=== PATIENT | female | born 1955 | race Caucasian/White ===

== ENCOUNTER 2024-09-09 23:13 | Inpatient (IN) ==
[2024-09-09 23:50] LABS: Appearance Urine Clear (Clear); Bilirubin Urine Negative (Negative); Blood Urine Negative (Negative); Color Urine Yellow; Glucose Urine UA Negative (Negative); Ketones Urine Trace (Negative); Leukocyte Esterase Urine Negative (Negative); Nitrite Urine Negative (Negative); Protein Urine Negative (Negative); Urobilinogen Urine Negative (Negative); pH Urine 5.5 (4.5-7.5)
[2024-09-09 23:52] LABS: Basophils # (auto) 0.06 K/uL (0.00-0.20); Basophils % (auto) 0.7 %; Eosinophils # (auto) 0.01 K/uL (0.00-0.50); Eosinophils % (auto) 0.1 %; Hematocrit (blood only) 40.4 % (37.0-47.0); Hemoglobin 12.9 g/dl (12.0-16.0); Immature Granulocytes # (auto) 0.02 K/uL (0.01-0.20); Immature Granulocytes % (auto) 0.2 %; Lymphocytes # (auto) 2.07 K/uL (1.20-3.40); Lymphocytes % (auto) 25.2 %; Mean Corpuscular Hemoglobin 27.4 pg (25.0-34.0); Mean Corpuscular Hgb Conc 31.9 g/dL (32.0-36.0); Mean Corpuscular Volume 85.8 fL (80.0-100.0); Monocytes # (auto) 0.52 K/uL (0.11-0.59); Monocytes % (auto) 6.3 %; Neutrophils # (auto) 5.53 K/uL (1.40-6.50); Neutrophils % (auto) 67.5 %; Platelet Count 281 K/uL (130-400); RDW Coefficient of Variation 14.5 % (11.5-14.5); RDW Standard Deviation 45.4 fL (36.4-46.3); Red Blood Count 4.71 M/uL (4.20-5.40); White Blood Count 8.21 K/ul (4.8-10.8)
[2024-09-09] MEDS: OPTIRAY 320 100ml IV ONE (23:57)
[2024-09-10 00:10] LABS: Alanine Aminotransferase 22 U/L (7-52); Albumin Level 4.3 gm/dl (3.4-5.0); Alkaline Phosphatase 97 U/L (34-104); Anion Gap 8 (3-11); Aspartate Aminotransferase 22 U/L (13-39); BUN Creatinine Ratio 18.2 (10-20); Bilirubin,Total 0.5 mg/dl (0.2-1.0); Blood Urea Nitrogen 28 mg/dl (6-23); Calcium 10.6 mg/dl (8.6-10.3); Carbon Dioxide 25 mmol/L (21-32); Chloride 105 mmol/L (98-107); Creatine Kinase 226 U/L (26-192); Globulin 4.1 gm/dl (2.5-4.0); Glucose 178 mg/dl (70-99(Fasting)); Magnesium 2.3 mg/dl (1.7-2.4); Potassium 4.3 mmol/L (3.5-5.1); Sodium 138 mmol/L (136-145); Total Protein 8.4 gm/dl (6.0-8.3)
--- NOTE | 2024-09-10 00:13 | Emergency Department Note ---
History of Present Illness General Chief complaint: Altered Mental Status Stated complaint: AMS Time Seen by Provider: 09/09/24 23:24 History of Present Illness This 69-year-old female from the [facility] presents the ER for frequent falls and increased confusion per EMS. Per review of the notes from the [facility] the patient has been there for 1 week from [place]. Patient is currently there for catatonia, anxiety and depression. Patient is moving all extremities. She is able to answer her name but does not answer any other questions for me. History is obtained from EMS and nursing. Home Medications Medication Instructions Recorded Confirmed Type amantadine HCl 100 mg capsule 100 mg PO HS 09/10/24 09/10/24 History amantadine HCl 100 mg capsule 200 mg PO QAM 09/10/24 09/10/24 History aspirin 81 mg chewable tablet 81 mg PO DAILY 09/10/24 09/10/24 History bupropion HCl 100 mg tablet,12 hr 100 mg PO DAILY 09/10/24 09/10/24 History sustained-release dorzolamide 22.3 mg-timolol 6.8 1 drp ophthalmic (eye) BID 09/10/24 09/10/24 History mg/mL eye drops ezetimibe 10 mg tablet 10 mg PO DAILY 09/10/24 09/10/24 History latanoprost 0.005 % eye drops 1 drp ophthalmic (eye) HS 09/10/24 09/10/24 History losartan 25 mg tablet 50 mg PO DAILY 09/10/24 09/10/24 History neomycin-bacitracn Zn-polymyx 3.5 1 applic topical BID 09/10/24 09/10/24 History mg-400 unit-5,000 unit/gram top oint (Triple Antibiotic) semaglutide 1 mg/dose (4 mg/3 mL) 1 mg subcut WK 09/10/24 09/10/24 History subcutaneous pen injector (Ozempic) ziprasidone HCl 60 mg capsule 60 mg PO AMPM 09/10/24 09/10/24 History Allergies Allergy/AdvReac Type Severity Reaction Status Date / Time Penicillins Allergy Unknown Verified 09/10/24 02:04 Past Med/Surg History Problem List (Updated 09/10/24 @ 03:20 by Emily Bean PA-C) Fall (Acute) Altered mental status (Acute) Social History Smoking Status: Former smoker Feels Safe at Home: Yes Physical Exam Vital Signs Vital Signs - 24 hr 09/09/24 23:08 09/09/24 23:08 09/09/24 23:24 Temperature 36.9 C Temperature Source Oral Pulse Rate 82 Pulse Rate from SpO2 Sensor Respiratory Rate 18 Respiratory Effort / Characteristics Non-Labored Non-Labored Respiratory Depth Normal Normal Blood Pressure 139/78 Blood Pressure Mean 98 Pulse Oximetry 80 L 97 Oxygen Delivery Method Room Air Nasal Cannula Oxygen Flow Rate 6 Sepsis Recent Fever Within 48 Hours No Sepsis New/Unexplained Change in Mental Status No Sepsis Action Taken by Nursing No Action Required 09/09/24 23:30 09/09/24 23:39 09/09/24 23:40 Temperature Temperature Source Pulse Rate 81 80 Pulse Rate from SpO2 Sensor 79 Respiratory Rate 26 H 23 Respiratory Effort / Characteristics Respiratory Depth Blood Pressure 154/82 H Blood Pressure Mean 96 Pulse Oximetry 80 L Oxygen Delivery Method Room Air Oxygen Flow Rate Sepsis Recent Fever Within 48 Hours Sepsis New/Unexplained Change in Mental Status Sepsis Action Taken by Nursing 09/09/24 23:40 09/09/24 23:41 09/10/24 00:24 Temperature Temperature Source Pulse Rate 83 83 Pulse Rate from SpO2 Sensor Respiratory Rate 27 H Respiratory Effort / Characteristics Respiratory Depth Blood Pressure 154/82 H Blood Pressure Mean 96 Pulse Oximetry 95 Oxygen Delivery Method Nasal Cannula Oxygen Flow Rate 6 Sepsis Recent Fever Within 48 Hours Sepsis New/Unexplained Change in Mental Status Sepsis Action Taken by Nursing 09/10/24 00:25 09/10/24 00:25 09/10/24 00:30 Temperature Temperature Source Pulse Rate 78 Pulse Rate from SpO2 Sensor 78 Respiratory Rate 22 Respiratory Effort / Characteristics Respiratory Depth Blood Pressure 142/72 H 142/72 H Blood Pressure Mean 98 98 Pulse Oximetry 100 Oxygen Delivery Method Free Flow/Blow- by Oxygen Flow Rate 8 Sepsis Recent Fever Within 48 Hours Sepsis New/Unexplained Change in Mental Status Sepsis Action Taken by Nursing 09/10/24 00:31 09/10/24 00:31 09/10/24 00:31 Temperature Temperature Source Pulse Rate Pulse Rate from SpO2 Sensor Respiratory Rate Respiratory Effort / Characteristics Respiratory Depth Blood Pressure 111/89 111/89 111/89 Blood Pressure Mean 96 96 96 Pulse Oximetry Oxygen Delivery Method Oxygen Flow Rate Sepsis Recent Fever Within 48 Hours Sepsis New/Unexplained Change in Mental Status Sepsis Action Taken by Nursing 09/10/24 00:31 09/10/24 00:41 09/10/24 00:45 Temperature Temperature Source Pulse Rate 82 Pulse Rate from SpO2 Sensor 82 Respiratory Rate 21 Respiratory Effort / Characteristics Respiratory Depth Blood Pressure 111/89 Blood Pressure Mean 96 Pulse Oximetry 98 98 Oxygen Delivery Method Free Flow/Blow- by Oxygen Flow Rate 8 Sepsis Recent Fever Within 48 Hours Sepsis New/Unexplained Change in Mental Status Sepsis Action Taken by Nursing 09/10/24 00:54 09/10/24 00:55 09/10/24 01:08 Temperature Temperature Source Pulse Rate 76 Pulse Rate from SpO2 Sensor 78 Respiratory Rate 16 Respiratory Effort / Characteristics Non-Labored Respiratory Depth Normal Blood Pressure Blood Pressure Mean Pulse Oximetry 99 98 Oxygen Delivery Method Room Air Room Air Oxygen Flow Rate Sepsis Recent Fever Within 48 Hours Sepsis New/Unexplained Change in Mental Status Sepsis Action Taken by Nursing VITALS: Vitals are noted on the nurse's note and reviewed by myself. Vital signs stable. GENERAL: White female moving all extremities not answering questions, in no acute distress, nondiaphoretic, well-developed well-nourished. SKIN: Old bruising to the anterior chest wall, the rest of the skin was without rashes, erythema, edema, or bruising. There is no tenting of the skin. Capillary reflex less than 2 seconds. HEAD: Normocephalic atraumatic. EARS: External auditory canals clear EYES: Pupils equal round and reactive to light and accommodation. Conjunctivae without injection, sclerae without icterus. Extraocular movements intact. NOSE: Patent, no discharge. MOUTH: Mucous membranes moist. Pharynx without erythema or exudate. Uvula midline. Airway patent. Tongue does not deviate. NECK: Supple without nuchal rigidity. No lymphadenopathy. No thyromegaly. Cervical spine is nontender. No JVD. HEART: Regular rate and rhythm LUNGS: Clear to auscultation bilaterally without wheezes, rales or rhonchi. No retractions or accessory muscle use. ABDOMEN: Positive bowel sounds x 4. Normal tympanic percussion. Soft, diffusely tender to palpation, without masses or organomegaly. Abbott sign negative. No guarding or rebound tenderness. No CVA tenderness MUSCULOSKELETAL: No muscle atrophy, erythema, or edema noted. No thoracic tenderness, lumbar tenderness. No bruising. No step-offs. 5-5 strength throughout. NEURO: Patient was alert and oriented to person but not place and time. Normal sensation to light and sharp touch. No focal neurological deficits. Course Administered Medications Discontinued Medications Sodium Chloride (Nss) 500 mls @ 999 mls/hr IV .Q31M ONE Stop: 09/10/24 00:02 Last Infusion: 09/10/24 01:00 Dose: Infused Documented By: Admin: 09/10/24 00:21 Dose: 999 mls/hr Documented By: MADDISON Ioversol (Optiray 320 100ml) 93 ml IV ONCE ONE Stop: 09/09/24 23:58 Last Admin: 09/09/24 23:57 Dose: 93 ml Documented By: MARLINE Lorazepam (Lorazepam 2 Mg/1 Ml Vial) 1 mg IV NOW STA Stop: 09/10/24 00:10 Last Admin: 09/10/24 00:19 Dose: 1 mg Documented By: MADDISON Medical Decision Making Medical Records Attestation: I reviewed the patient's medical records. Home Medications Current Medication List: was personally reviewed by me Laboratory Data Attestation: I reviewed the patient's lab results. 09/09/24 23:24 09/09/24 23:24 Lab Results 09/09/24 Range/Units 23:24 WBC 8.21 (4.8-10.8) K/ul RBC 4.71 (4.20-5.40) M/uL Hgb 12.9 (12.0-16.0) g/dl Hct 40.4 (37.0-47.0) % MCV 85.8 (80.0-100.0) fL MCH 27.4 (25.0-34.0) pg MCHC 31.9 L (32.0-36.0) g/dL RDW Std Deviation 45.4 (36.4-46.3) fL RDW Coeff of [place] 14.5 (11.5-14.5) % Plt Count 281 (130-400) K/uL MPV 10.0 (9.4-12.4) fL Immature Gran % (Auto) 0.2 % Neut % (Auto) 67.5 % Lymph % (Auto) 25.2 % [place] % (Auto) 6.3 % Eos % (Auto) 0.1 % Baso % (Auto) 0.7 % Neut # (Auto) 5.53 (1.40-6.50) K/uL Lymph # (Auto) 2.07 (1.20-3.40) K/uL [place] # (Auto) 0.52 (0.11-0.59) K/uL Eos # (Auto) 0.01 (0.00-0.50) K/uL Baso # (Auto) 0.06 (0.00-0.20) K/uL Immature Gran # (Auto) 0.02 (0.01-0.20) K/uL Sodium 138 (136-145) mmol/L Potassium 4.3 (3.5-5.1) mmol/L Chloride 105 (98-107) mmol/L Carbon Dioxide 25 (21-32) mmol/L Anion Gap 8 (3-11) BUN 28 H (6-23) mg/dl Creatinine 1.54 H (0.6-1.2) mg/dl Est Cr Clr Drug Dosing Not Reportable eGFR 36.55 BUN/Creatinine Ratio 18.2 (10-20) Glucose 178 H (70-99(Fasting)) mg/dl Calcium 10.6 H (8.6-10.3) mg/dl Magnesium 2.3 (1.7-2.4) mg/dl Total Bilirubin 0.5 (0.2-1.0) mg/dl AST 22 (13-39) U/L ALT 22 (7-52) U/L Alkaline Phosphatase 97 (34-104) U/L Total Creatine Kinase 226 H (26-192) U/L Troponin I High Sens 7.5 (0-14) pg/ml Total Protein 8.4 H (6.0-8.3) gm/dl Albumin 4.3 (3.4-5.0) gm/dl Globulin 4.1 H (2.5-4.0) gm/dl Albumin/Globulin Ratio 1.0 (0.9-2) TSH 1.208 (0.300-4.500) uIu/ml Urine Color Yellow Urine Appearance Clear (Clear) Urine pH 5.5 (4.5-7.5) Ur Specific [place] 1.020 (1.000-1.030) Urine Protein Negative (Negative) Urine Glucose (UA) Negative (Negative) Urine Ketones Trace H (Negative) Urine Blood Negative (Negative) Urine Nitrite Negative (Negative) Urine Bilirubin Negative (Negative) Urine Urobilinogen Negative (Negative) Ur Leukocyte Esterase Negative (Negative) Imaging Data Attestation: I personally reviewed and interpreted this imaging study as follows: Radiologist's Impression: Head CT 09/09/24 23:24 EXAM: CT head/brain wo con CLINICAL HISTORY: AMS TECHNIQUE: Multiple axial images are obtained from the skull base to the vertex without contrast. CT scan was performed according to ALARA (as low as reasonable achievable). COMPARISON: None. FINDINGS: There is cerebral atrophy. Osteosclerosis involving skull bones No evidence of space occupying lesion, hemorrhage, edema, mass effect, midline shift, extra axial collection, or hydrocephalus is noted. Basal cisterns are symmetric and normal in size and configuration. There are scattered periventricular hypodensities as can be seen with chronic microvascular ischemic changes. The proctor-white matter differentiation is preserved. Visualized paranasal sinuses and mastoid air cells are well aerated. Orbital contents are within normal limits. Bony structures are intact. IMPRESSION: 1. No evidence of acute intracranial abnormality is demonstrated. 2. Chronic microvascular ischemic changes. 3. Cerebral atrophy. 4. Osteosclerosis involving skull bones: advise metabolic workup Electronically signed by Austin Higuera 09-10-2024 01:48 AM Abdomen/Pelvis CT 09/09/24 23:32 EXAM: CT abd pelvis IV con only CLINICAL HISTORY: fall, pain TECHNIQUE: Multiple contiguous axial images were obtained from the level of diaphragm to the pubis symphysis. This study was acquired after the IV administration of iodinated contrast material, given the patient's indications for the examination. If IV contrast material had not been administered, the likelihood of detecting abnormalities relevant to the patient's condition would have been substantially decreased. Coronal and sagittal reformatted images were generated and reviewed to improve anatomic localization and optimize lesion detection. CT scan was performed according to ALARA (as low as reasonably achievable). COMPARISON: None. FINDINGS: The visualized lung bases are clear. ABDOMEN/PELVIS: The liver is normal in size and attenuation. No focal liver lesions are seen. There is no intra or extrahepatic biliary ductal dilatation. Hepatic vasculature is patent. Gallbladder is not visualized, cholecystectomy status. Mild bilateral perinephric fat stranding is noted, likely age related. The spleen is unremarkable. The pancreas is unremarkable. Both adrenal glands are unremarkable. The kidneys are normal in size and attenuation. There is no hydronephrosis. No renal calculi or renal masses are identified. The ureters are normal in caliber and no ureteral calculi are seen. The bladder is normal in contour. No evidence of focal or diffuse bowel wall thickening or evidence of bowel obstruction is seen. The appendix appears normal. No adenopathy or fluid collections are seen. The aorta is normal in caliber. No aggressive appearing osseous lesions are identified. Collection is noted within the endometrial cavity with suspicious enhancing soft tissue. IMPRESSION: 1. No obvious post-traumatic solid organ injury detected. 2. No free fluid is noted in the abdominopelvic cavity. 3. Hypodense collection is noted within the endometrial cavity with suspicious enhancing soft tissue. Clinical correlation/ultrasound pelvis is suggested for better evaluation. 4. Mild bilateral perinephric fat stranding, likely age related. Electronically signed by Austin Higuera 09-10-2024 02:[address] 09/09/24 23:32 EXAM: CT cervical spine wo con CLINICAL HISTORY: fall, AMS TECHNIQUE: Computed tomography of the cervical spine performed without intravenous contrast. Contiguous axial images were obtained from the skull base to T2, with sagittal and coronal reformatted images reconstructed from the axial data. CT scan was performed according to ALARA (as low as reasonably achievable). COMPARISON: None. FINDINGS: Straightening of the cervical spine is noted. Alignment of spine is maintained. Vertebral bodies are normal in height. No evidence of fracture. Lateral masses of C1 are symmetrical, and the dens is intact. Prevertebral soft tissues are not widened. The remaining suprahyoid and infrahyoid soft tissues in the neck are unremarkable. C2-C3: No disc bulge, mass effect on the cord or neuroforaminal narrowing. C3-C4: No disc bulge, mass effect on the cord or neuroforaminal narrowing. C4-C5: No disc bulge, mass effect on the cord or neuroforaminal narrowing. C5-C6: No disc bulge, mass effect on the cord or neuroforaminal narrowing. C6-C7: No disc bulge, mass effect on the cord or neuroforaminal narrowing. C7-T1: No disc bulge, mass effect on the cord or neuroforaminal narrowing. Thyroid gland appears unremarkable. IMPRESSION: 1. No acute fracture or subluxation in the cervical spine. Electronically signed by Austin Higuera 09-10-2024 01:[address] 09/09/24 23:32 EXAM: CT chest diagnostic w con CLINICAL HISTORY: fall, ams TECHNIQUE: Contiguous axial images were obtained from the neck base through the upper abdomen following intravenous administration of contrast material. If IV contrast material had not been administered, the likelihood of detecting abnormalities relevant to the patient's condition would have been substantially decreased. In addition, sagittal and coronal reconstructions were performed. CT scan was performed according to ALARA (as low as reasonably achievable). COMPARISON: none FINDINGS: The lungs are clear, with no focal areas of consolidation. No pulmonary nodules are seen. The central airways are patent. There are no pleural effusions. No pneumothorax is seen. No axillary, hilar, or mediastinal adenopathy is identified. The visualized thyroid is unremarkable. The heart, aorta, and pulmonary arteries are of normal size and configuration. No pericardial effusion is identified. Imaged portions of the upper abdomen are unremarkable. No aggressive appearing osseous lesions are identified. IMPRESSION: 1. No acute trauma related injury detected. Electronically signed by Austin Higuera 09-10-2024 02:[address] 09/09/24 23:32 EXAM: CT lumbar spine w con CLINICAL HISTORY: fall, pain TECHNIQUE: Multiple contiguous axial images were obtained through the lumbar spine without IV contrast. Sagittal and coronal reformatted images were obtained from the axial data. CT scan was performed according to ALARA (as low as reasonable achievable). COMPARISON: None. FINDINGS: The normal lordotic curvature of the lumbar spine is maintained. Lumbar vertebral bodies are maintained in height and alignment. No vertebral estructive changes are seen. T11-T12: Evaluated on sagittal images only. No disc bulge, canal stenosis or neuroforaminal narrowing. Subarticular recesses are patent. T12-L1: Evaluated on sagittal images only. No disc bulge, canal stenosis or neuroforaminal narrowing. Subarticular recesses are patent. L1-L2: No disc bulge, canal stenosis or neuroforaminal narrowing. Subarticular recesses are patent. L2-L3: No disc bulge, canal stenosis or neuroforaminal narrowing. Subarticular recesses are patent. L3-L4: No disc bulge, canal stenosis or neuroforaminal narrowing. Subarticular recesses are patent. L4-L5: No disc bulge, canal stenosis or neuroforaminal narrowing. Subarticular recesses are patent. L5-S1: Mild posterior disc osteophyte complex which indenting ventral thecal sac without significant neural foraminal narrowing. Paravertebral soft tissues are unremarkable. IMPRESSION: 1. Lumbar spondylosis. 2. No fracture or dislocation. Electronically signed by Austin Higuera 09-10-2024 01:[address] 09/09/24 23:32 EXAM: CT thoracic spine w con CLINICAL HISTORY: fall, pain TECHNIQUE: Multiple contiguous axial images were obtained through the thoracic spine without IV contrast. Sagittal and coronal reformatted images were obtained from the axial data. CT scan was performed according to ALARA (as low as reasonably achievable). COMPARISON: none FINDINGS: The alignment of the thoracic spine is maintained. Marginal osteophytes at T2/T3, T9/T10 and T10/T11 levels. Thoracic vertebral bodies are maintained in height and alignment. No vertebral destructive changes are seen. No disc bulge. No canal stenosis. No neuroforaminal narrowing. Paravertebral soft tissues are unremarkable. Visualized lung parenchyma appears unremarkable. IMPRESSION: 1. No acute fracture or subluxation in the thoracic spine. 2. Early degenerative changes in thoracic spine. Electronically signed by Austin Higuera 09-10-2024 01:39 AM MDM Narrative Prior records/ancillary studies reviewed and summarized above. Nursing notes reviewed. Additional history obtained from EMS. The patient's history was concerning for altered mental status. Differential diagnosis: Etiologies such as metabolic, infection, hypoglycemia, electrolyte abnormalities, cardiac sources, intracerebral event, toxicologic, neurologic, as well as others were entertained. Physical examination: As above. ER treatment provided: IV Lock Normal saline hydration. An order was placed for continuous cardiac monitoring. The monitor shows a rate of 60-100 with a sinus rhythm per my interpretation. Ativan was ordered On reassessment the patients mental status improved. Diagnostics interpretation by me: ECG: Ordered for altered vital status EKG: Normal sinus, normal intervals, no acute ST-T wave changes, rate 81. Impression normal sinus rhythm independently interpreted by myself The labs Independently Interpreted by myself revealed no worrisome leukocytosis, creatinine 1.5. Negative troponin Imaging studies: Imaging was reviewed and read by radiology Given the above diagnostic work-up and treatment, this episode appears to be consistent with altered mental status that most likely is related to the patient's known catatonia. Patient does not normally come here. She is from the [facility]. She was admitted to the med he has from [facility] per chart review in the records that was sent in. Further treatment will be required. Consultation: A consultation was placed with the hospitalist. The case was discussed and diagnostics were reviewed. The patient was evaluated in the ER for further treatment. Impression & Plan Altered mental status, Fall Discharge Plan Visit Data Chief Complaint: Altered Mental Status Stated Complaint: AMS ED Provider: [facility] ED Midlevel Provider: Emily Bean Discharge Problem: Altered mental status, Fall Patient Disposition: Admitted As Inpatient Condition: Fair Forms Stand Alone Forms: [facility] Prescriptions Prescriptions: No Action amantadine HCl 100 mg capsule 100 mg PO HS bupropion HCl 100 mg tablet sustained-release 12 hr 100 mg PO DAILY ezetimibe 10 mg tablet 10 mg PO DAILY latanoprost 0.005 % drops 1 drp ophthalmic (eye) HS amantadine HCl 100 mg capsule 200 mg PO QAM losartan 25 mg Tablet 50 mg PO DAILY aspirin [Aspirin Child] 81 mg Tablet,Chewable 81 mg PO DAILY dorzolamide-timolol 22.3-6.8 mg/mL drops 1 drp ophthalmic (eye) BID ziprasidone HCl 60 mg capsule 60 mg PO AMPM Ozempic 1 mg/dose (4 mg/3 mL) pen injector 1 mg SUBCUT WK Triple Antibiotic 3.5mg-400 unit- 5,000 unit/gram Ointment 1 applic TOPICAL BID Rx Instructions: LEFT ELBOW SKIN TEAR FOR 7 DAYS...STOP 09/15/24 Referrals Referrals: PCP,NO [Physician] - Discharge Problem: Altered mental status Qualifiers: Altered mental status type: unspecified Qualified Code(s): R41.82 - Altered mental status, unspecified
[2024-09-10 00:17] LABS: Troponin I High Sensitivity 7.5 pg/ml (0-14)
[2024-09-10] MEDS: LORazepam 2 MG/1 ML VIAL IV STA ×2 (00:19→14:41)
[2024-09-10] MEDS: SODIUM CHLORIDE 0.9% 500 ML IV ONE (00:21)
[2024-09-10 00:26] LABS: Thyroid Stimulating Hormone 1.208 uIu/ml (0.300-4.500)
--- NOTE | 2024-09-10 01:40 | CT Scan Report ---
EXAM: CT thoracic spine w con CLINICAL HISTORY: fall, pain TECHNIQUE: Multiple contiguous axial images were obtained through the thoracic spine without IV contrast. Sagittal and coronal reformatted images were obtained from the axial data. CT scan was performed according to ALARA (as low as reasonably achievable). COMPARISON: none FINDINGS: The alignment of the thoracic spine is maintained. Marginal osteophytes at T2/T3, T9/T10 and T10/T11 levels. Thoracic vertebral bodies are maintained in height and alignment. No vertebral destructive changes are seen. No disc bulge. No canal stenosis. No neuroforaminal narrowing. Paravertebral soft tissues are unremarkable. Visualized lung parenchyma appears unremarkable. IMPRESSION: 1. No acute fracture or subluxation in the thoracic spine. 2. Early degenerative changes in thoracic spine. Electronically signed by Austin Higuera 09-10-2024 01:39 AM
--- NOTE | 2024-09-10 01:49 | CT Scan Report ---
EXAM: CT head/brain wo con CLINICAL HISTORY: AMS TECHNIQUE: Multiple axial images are obtained from the skull base to the vertex without contrast. CT scan was performed according to ALARA (as low as reasonable achievable). COMPARISON: None. FINDINGS: There is cerebral atrophy. Osteosclerosis involving skull bones No evidence of space occupying lesion, hemorrhage, edema, mass effect, midline shift, extra axial collection, or hydrocephalus is noted. Basal cisterns are symmetric and normal in size and configuration. There are scattered periventricular hypodensities as can be seen with chronic microvascular ischemic changes. The proctor-white matter differentiation is preserved. Visualized paranasal sinuses and mastoid air cells are well aerated. Orbital contents are within normal limits. Bony structures are intact. IMPRESSION: 1. No evidence of acute intracranial abnormality is demonstrated. 2. Chronic microvascular ischemic changes. 3. Cerebral atrophy. 4. Osteosclerosis involving skull bones: advise metabolic workup Electronically signed by Austin Higuera 09-10-2024 01:48 AM
--- NOTE | 2024-09-10 01:55 | CT Scan Report ---
EXAM: CT cervical spine wo con CLINICAL HISTORY: fall, AMS TECHNIQUE: Computed tomography of the cervical spine performed without intravenous contrast. Contiguous axial images were obtained from the skull base to T2, with sagittal and coronal reformatted images reconstructed from the axial data. CT scan was performed according to ALARA (as low as reasonably achievable). COMPARISON: None. FINDINGS: Straightening of the cervical spine is noted. Alignment of spine is maintained. Vertebral bodies are normal in height. No evidence of fracture. Lateral masses of C1 are symmetrical, and the dens is intact. Prevertebral soft tissues are not widened. The remaining suprahyoid and infrahyoid soft tissues in the neck are unremarkable. C2-C3: No disc bulge, mass effect on the cord or neuroforaminal narrowing. C3-C4: No disc bulge, mass effect on the cord or neuroforaminal narrowing. C4-C5: No disc bulge, mass effect on the cord or neuroforaminal narrowing. C5-C6: No disc bulge, mass effect on the cord or neuroforaminal narrowing. C6-C7: No disc bulge, mass effect on the cord or neuroforaminal narrowing. C7-T1: No disc bulge, mass effect on the cord or neuroforaminal narrowing. Thyroid gland appears unremarkable. IMPRESSION: 1. No acute fracture or subluxation in the cervical spine. Electronically signed by Austin Higuera 09-10-2024 01:55 AM
--- NOTE | 2024-09-10 02:00 | CT Scan Report ---
EXAM: CT lumbar spine w con CLINICAL HISTORY: fall, pain TECHNIQUE: Multiple contiguous axial images were obtained through the lumbar spine without IV contrast. Sagittal and coronal reformatted images were obtained from the axial data. CT scan was performed according to ALARA (as low as reasonable achievable). COMPARISON: None. FINDINGS: The normal lordotic curvature of the lumbar spine is maintained. Lumbar vertebral bodies are maintained in height and alignment. No vertebral estructive changes are seen. T11-T12: Evaluated on sagittal images only. No disc bulge, canal stenosis or neuroforaminal narrowing. Subarticular recesses are patent. T12-L1: Evaluated on sagittal images only. No disc bulge, canal stenosis or neuroforaminal narrowing. Subarticular recesses are patent. L1-L2: No disc bulge, canal stenosis or neuroforaminal narrowing. Subarticular recesses are patent. L2-L3: No disc bulge, canal stenosis or neuroforaminal narrowing. Subarticular recesses are patent. L3-L4: No disc bulge, canal stenosis or neuroforaminal narrowing. Subarticular recesses are patent. L4-L5: No disc bulge, canal stenosis or neuroforaminal narrowing. Subarticular recesses are patent. L5-S1: Mild posterior disc osteophyte complex which indenting ventral thecal sac without significant neural foraminal narrowing. Paravertebral soft tissues are unremarkable. IMPRESSION: 1. Lumbar spondylosis. 2. No fracture or dislocation. Electronically signed by Austin Higurea 09-10-2024 01:59 AM
--- NOTE | 2024-09-10 02:05 | CT Scan Report ---
EXAM: CT chest diagnostic w con CLINICAL HISTORY: fall, ams TECHNIQUE: Contiguous axial images were obtained from the neck base through the upper abdomen following intravenous administration of contrast material. If IV contrast material had not been administered, the likelihood of detecting abnormalities relevant to the patient's condition would have been substantially decreased. In addition, sagittal and coronal reconstructions were performed. CT scan was performed according to ALARA (as low as reasonably achievable). COMPARISON: none FINDINGS: The lungs are clear, with no focal areas of consolidation. No pulmonary nodules are seen. The central airways are patent. There are no pleural effusions. No pneumothorax is seen. No axillary, hilar, or mediastinal adenopathy is identified. The visualized thyroid is unremarkable. The heart, aorta, and pulmonary arteries are of normal size and configuration. No pericardial effusion is identified. Imaged portions of the upper abdomen are unremarkable. No aggressive appearing osseous lesions are identified. IMPRESSION: 1. No acute trauma related injury detected. Electronically signed by Austin Higuera 09-10-2024 02:05 AM
--- NOTE | 2024-09-10 03:00 | CT Scan Report ---
EXAM: CT abd pelvis IV con only CLINICAL HISTORY: fall, pain TECHNIQUE: Multiple contiguous axial images were obtained from the level of diaphragm to the pubis symphysis. This study was acquired after the IV administration of iodinated contrast material, given the patient's indications for the examination. If IV contrast material had not been administered, the likelihood of detecting abnormalities relevant to the patient's condition would have been substantially decreased. Coronal and sagittal reformatted images were generated and reviewed to improve anatomic localization and optimize lesion detection. CT scan was performed according to ALARA (as low as reasonably achievable). COMPARISON: None. FINDINGS: The visualized lung bases are clear. ABDOMEN/PELVIS: The liver is normal in size and attenuation. No focal liver lesions are seen. There is no intra or extrahepatic biliary ductal dilatation. Hepatic vasculature is patent. Gallbladder is not visualized, cholecystectomy status. Mild bilateral perinephric fat stranding is noted, likely age related. The spleen is unremarkable. The pancreas is unremarkable. Both adrenal glands are unremarkable. The kidneys are normal in size and attenuation. There is no hydronephrosis. No renal calculi or renal masses are identified. The ureters are normal in caliber and no ureteral calculi are seen. The bladder is normal in contour. No evidence of focal or diffuse bowel wall thickening or evidence of bowel obstruction is seen. The appendix appears normal. No adenopathy or fluid collections are seen. The aorta is normal in caliber. No aggressive appearing osseous lesions are identified. Collection is noted within the endometrial cavity with suspicious enhancing soft tissue. IMPRESSION: 1. No obvious post-traumatic solid organ injury detected. 2. No free fluid is noted in the abdominopelvic cavity. 3. Hypodense collection is noted within the endometrial cavity with suspicious enhancing soft tissue. Clinical correlation/ultrasound pelvis is suggested for better evaluation. 4. Mild bilateral perinephric fat stranding, likely age related. Electronically signed by Austin Higuera 09-10-2024 02:59 AM
[2024-09-10 03:59] LABS: Base Excess VBG -2.4 mEq/L; HCO3 VBG 23 mmol/L; Oxygen Saturation VBG 76.5 %; PCO2 VBG 42 mmHg (38-50); PO2 VBG 42 mmHg; pH VBG 7.35 (7.36-7.41)
[2024-09-10 04:04] LABS: Basophils # (auto) 0.07 K/uL (0.00-0.20); Basophils % (auto) 0.9 %; Eosinophils # (auto) 0.01 K/uL (0.00-0.50); Eosinophils % (auto) 0.1 %; Hematocrit (blood only) 35.9 % (37.0-47.0); Hemoglobin 11.6 g/dl (12.0-16.0); Immature Granulocytes # (auto) 0.02 K/uL (0.01-0.20); Immature Granulocytes % (auto) 0.3 %; Lymphocytes % (auto) 33.9 %; Mean Corpuscular Hemoglobin 27.8 pg (25.0-34.0); Mean Corpuscular Hgb Conc 32.3 g/dL (32.0-36.0); Mean Corpuscular Volume 85.9 fL (80.0-100.0); Mean Platelet Volume 10.1 fL (9.4-12.4); Monocytes # (auto) 0.54 K/uL (0.11-0.59); Monocytes % (auto) 6.8 %; Neutrophils # (auto) 4.63 K/uL (1.40-6.50); Platelet Count 240 K/uL (130-400); RDW Coefficient of Variation 14.5 % (11.5-14.5); RDW Standard Deviation 45.7 fL (36.4-46.3); Red Blood Count 4.18 M/uL (4.20-5.40); White Blood Count 7.97 K/ul (4.8-10.8)
[2024-09-10] MEDS: SODIUM CHLORIDE 0.9% 1,000 ML IV ONE (04:11)
[2024-09-10 04:19] LABS: BUN Creatinine Ratio 18.2 (10-20); Calcium 9.7 mg/dl (8.6-10.3); Phosphorus 4.4 mg/dl (2.5-4.9); Potassium 4.1 mmol/L (3.5-5.1)
--- NOTE | 2024-09-10 04:37 | History & Physical Report ---
Date of Service September 10, 2024 Assessment & Plan (1) Encephalopathy: Plan: Encephalopathy Recurrent falls, possible orthostasis given hypotension at the ER, rule out seizures Likely secondary to neuropsychotropic medication adverse effect/interaction, hx bipolar disorder, schizoaffective disorder, ARF secondary to illness hyperlipidemia, on ezetimibe DM 2 on Ozempic, unknown baseline control chronic tremors Endometrial hypodensity on CT past tobacco abuse OBS Admit to med/tele Monitor creatinine response to IVF, hold ARB until creatinine back to baseline TTE, EEG for syncope workup Psych consult re: medication management Hold neuropsychotropic medications until patient seen by psychiatry and regimen discussed with the [facility]. ISS BG goal 110-140, carb count coverage, checking hemoglobin A1c Outpatient pelvic ultrasound for endometrial hypodensity on CT DVT prophylaxis with Heparin subcu Full code Patient requesting updates from providers. Mr. Nguyễn Ricks, contact #[phone]. Text document was generated using [employer] voice recognition software. It may contain grammatical or spelling errors. Kindly contact undersigned for clarification of any documentation item in question. History of Present Illness Chief Complaint: I do not know as per patient Recurrent falls, unresponsiveness as per records Primary Care Provider: PCP : Dr. Ribera from [place], [place] History obtained from patient, family, and records. Patient is not a reliable historian secondary to disorientation. Medical history significant for hypertension, hyperlipidemia, DM 2 on Ozempic, bipolar disorder, schizoaffective disorder, chronic tremors, glaucoma, past tobacco abuse. Patient is a resident of [place], [place] who was admitted at the local [facility] last September 01, 2024. 2 weeks ago, patient noted to have decreased responsiveness, hallucinations and catatonia, and confusion at home following PCP visit and increase in Geodon home dose. Patient stopped taking other mood pills as per . Patient admitted for 3 days at [facility] in [place], [place] for catatonia. Ativan 3 times daily initiated for catatonia. Patient Geodon resumed inpatient. Patient subsequently discharged to [facility] in [facility] for inpatient psych admission last August 29. Patient doing well and supposed to go home tomorrow as per . Patient with recurrent falls at the [facility] since yesterday. Decreased responsiveness. Not sure if patient passed out. No witnessed seizures. Patient brought to ER for evaluation. Patient noted to be agitated at the ER requiring IV Ativan administration. Lowest SBP at the ER noted to be 80s. Patient denies headache, chest pain, SOB, abdominal pain. Does not know why she is in the hospital. 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, retired [employer] Allergies Allergy/AdvReac Type Severity Reaction Status Date / Time Penicillins Allergy Unknown Verified 09/10/24 02:04 Home Medications Medication Instructions Recorded Confirmed Type amantadine HCl 100 mg capsule 100 mg PO HS 09/10/24 09/10/24 History amantadine HCl 100 mg capsule 200 mg PO QAM 09/10/24 09/10/24 History aspirin 81 mg chewable tablet 81 mg PO DAILY 09/10/24 09/10/24 History bupropion HCl 100 mg tablet,12 hr 100 mg PO DAILY 09/10/24 09/10/24 History sustained-release dorzolamide 22.3 mg-timolol 6.8 1 drp ophthalmic (eye) BID 09/10/24 09/10/24 History mg/mL eye drops ezetimibe 10 mg tablet 10 mg PO DAILY 09/10/24 09/10/24 History latanoprost 0.005 % eye drops 1 drp ophthalmic (eye) HS 09/10/24 09/10/24 History losartan 25 mg tablet 50 mg PO DAILY 09/10/24 09/10/24 History neomycin-bacitracn Zn-polymyx 3.5 1 applic topical BID 09/10/24 09/10/24 History mg-400 unit-5,000 unit/gram top oint (Triple Antibiotic) semaglutide 1 mg/dose (4 mg/3 mL) 1 mg subcut WK 09/10/24 09/10/24 History subcutaneous pen injector (Ozempic) ziprasidone HCl 60 mg capsule 60 mg PO AMPM 09/10/24 09/10/24 History Past Med/Surg History Problem List (Updated 09/10/24 @ 06:55 by Wayne Pelletier MD) Encephalopathy Fall (Acute) Altered mental status (Acute) Social History Smoking Status: Former smoker Feels Safe at Home: Yes Review of Systems Review of Systems: Could not be reliably obtained secondary to disorientation Physical Exam Physical Exam: GENERAL: Disoriented, slightly uncomfortable, obese, tremulous, no respiratory distress SKIN: Normal color, warm HEENT: Vale palpebral conjunctivae, no ptosis, dry buccal mucosa NECK : Supple, short neck, no tenderness CHEST : CTA, no tenderness HEART : RRR, no obvious murmurs ABDOMEN: Some distention, nontender EXTREMITIES : Minimal LE swelling, no LE tenderness, palpable pulses, no other conspicuous deformities noted NEUROLOGIC : Disoriented, no facial asymmetry, tremulous, no other gross focality Results & Data Results & Data Vital Signs (Past 12 Hours) Vital Signs Temp Pulse Pulse Resp BP BP Pulse Ox 09/10/24 04:31 73 16 152/71 H 94 09/10/24 03:31 122/100 09/10/24 03:31 122/100 09/10/24 03:30 79 19 98 09/10/24 03:27 8 L 09/10/24 03:18 84 21 98 09/10/24 03:03 94 H 21 97 09/10/24 03:00 09/10/24 02:51 86 18 98 09/10/24 02:42 83 24 98 09/10/24 02:33 84 28 H 98 09/10/24 02:09 77 18 98 09/10/24 01:21 76 19 97 09/10/24 01:18 88/65 L 09/10/24 01:18 88/65 L 09/10/24 01:15 77 28 H 98 09/10/24 01:12 78 24 98 09/10/24 00:55 98 09/10/24 00:54 76 16 99 09/10/24 00:45 82 21 98 09/10/24 00:41 98 09/10/24 00:31 111/89 09/10/24 00:31 111/89 09/10/24 00:31 111/89 09/10/24 00:31 111/09/10/24 00:30 78 22 100 09/10/24 00:25 142/72 H 09/10/24 00:25 142/72 H 09/10/24 00:24 83 27 H 09/09/24 23:41 83 09/09/24 23:40 154/82 H 95 09/09/24 23:40 154/82 H 09/09/24 23:39 80 23 80 L 09/09/24 23:30 81 26 H 09/09/24 23:24 97 09/09/24 23:08 36.9 C 82 18 139/78 80 L O2 Del Method O2 Flow Rate 09/10/24 04:31 Room Air 09/10/24 03:31 09/10/24 03:31 09/10/24 03:30 09/10/24 03:27 09/10/24 03:18 09/10/24 03:03 09/10/24 03:00 Room Air 09/10/24 02:51 09/10/24 02:42 09/10/24 02:33 09/10/24 02:09 09/10/24 01:21 09/10/24 01:18 09/10/24 01:18 09/10/24 01:15 09/10/24 01:12 09/10/24 00:55 Room Air 09/10/24 00:54 Room Air 09/10/24 00:45 09/10/24 00:41 Free Flow/Blow-by 8 09/10/24 00:31 09/10/24 00:31 09/10/24 00:31 09/10/24 00:31 09/10/24 00:30 Free Flow/Blow-by 8 09/10/24 00:25 09/10/24 00:25 09/10/24 00:24 09/09/24 23:41 09/09/24 23:40 Nasal Cannula 6 09/09/24 23:40 09/09/24 23:39 Room Air 09/09/24 23:30 09/09/24 23:24 Nasal Cannula 6 09/09/24 23:08 Room Air Laboratory Results Laboratory Results WBC 7.97 K/ul (4.8-10.8) 09/10/24 03:40 RBC 4.18 M/uL (4.20-5.40) L 09/10/24 03:40 Hgb 11.6 g/dl (12.0-16.0) L 09/10/24 03:40 Hct 35.9 % (37.0-47.0) L 09/10/24 03:40 MCV 85.9 fL (80.0-100.0) 09/10/24 03:40 MCH 27.8 pg (25.0-34.0) 09/10/24 03:40 MCHC 32.3 g/dL (32.0-36.0) 09/10/24 03:40 RDW Std Deviation 45.7 fL (36.4-46.3) 09/10/24 03:40 RDW Coeff of Onesimo 14.5 % (11.5-14.5) 09/10/24 03:40 Plt Count 240 K/uL (130-400) 09/10/24 03:40 MPV 10.1 fL (9.4-12.4) 09/10/24 03:40 Immature Gran % (Auto) 0.3 % 09/10/24 03:40 Neut % (Auto) 58.0 % 09/10/24 03:40 Lymph % (Auto) 33.9 % 09/10/24 03:40 Wilkin % (Auto) 6.8 % 09/10/24 03:40 Eos % (Auto) 0.1 % 09/10/24 03:40 Baso % (Auto) 0.9 % 09/10/24 03:40 Neut # (Auto) 4.63 K/uL (1.40-6.50) 09/10/24 03:40 Lymph # (Auto) 2.70 K/uL (1.20-3.40) 09/10/24 03:40 Wilkin # (Auto) 0.54 K/uL (0.11-0.59) 09/10/24 03:40 Eos # (Auto) 0.01 K/uL (0.00-0.50) 09/10/24 03:40 Baso # (Auto) 0.07 K/uL (0.00-0.20) 09/10/24 03:40 Immature Gran # (Auto) 0.02 K/uL (0.01-0.20) 09/10/24 03:40 VBG pH 7.35 (7.36-7.41) L 09/10/24 03:40 VBG pCO2 42 mmHg (38-50) 09/10/24 03:40 VBG pO2 42 mmHg 09/10/24 03:40 VBG HCO3 23 mmol/L 09/10/24 03:40 VBG O2 Saturation 76.5 % 09/10/24 03:40 VBG Base Excess -2.4 mEq/L 09/10/24 03:40 Sodium 139 mmol/L (136-145) 09/10/24 03:40 Potassium 4.1 mmol/L (3.5-5.1) 09/10/24 03:40 Chloride 108 mmol/L (98-107) H 09/10/24 03:40 Carbon Dioxide 24 mmol/L (21-32) 09/10/24 03:40 Anion Gap 7 (3-11) 09/10/24 03:40 BUN 25 mg/dl (6-23) H 09/10/24 03:40 Creatinine 1.37 mg/dl (0.6-1.2) H 09/10/24 03:40 Est Cr Clr Drug Dosing 38.0 ml/min 09/10/24 03:40 eGFR 42.06 09/10/24 03:40 BUN/Creatinine Ratio 18.2 (10-20) 09/10/24 03:40 Glucose 99 mg/dl (70-99(Fasting)) 09/10/24 03:40 Calcium 9.7 mg/dl (8.6-10.3) 09/10/24 03:40 Phosphorus 4.4 mg/dl (2.5-4.9) 09/10/24 03:40 Magnesium 2.3 mg/dl (1.7-2.4) 09/09/24 23:24 Total Bilirubin 0.5 mg/dl (0.2-1.0) 09/09/24 23:24 AST 22 U/L (13-39) 09/09/24 23:24 ALT 22 U/L (7-52) 09/09/24 23:24 Alkaline Phosphatase 97 U/L (34-104) 09/09/24 23:24 Ammonia 17.0 umol/L (18-72) L 09/10/24 03:40 Total Creatine Kinase 535 U/L (26-192) H 09/10/24 03:40 Troponin I High Sens 7.5 pg/ml (0-14) 09/09/24 23:24 Total Protein 8.4 gm/dl (6.0-8.3) H 09/09/24 23:24 Albumin 4.3 gm/dl (3.4-5.0) 09/09/24 23:24 Globulin 4.1 gm/dl (2.5-4.0) H 09/09/24 23:24 Albumin/Globulin Ratio 1.0 (0.9-2) 09/09/24 23:24 TSH 1.208 uIu/ml (0.300-4.500) 09/09/24 23:24 Urine Color Yellow 09/09/24 23:24 Urine Appearance Clear (Clear) 09/09/24 23:24 Urine pH 5.5 (4.5-7.5) 09/09/24 23:24 Ur Specific [place] 1.020 (1.000-1.030) 09/09/24 23:24 Urine Protein Negative (Negative) 09/09/24 23:24 Urine Glucose (UA) Negative (Negative) 09/09/24 23:24 Urine Ketones Trace (Negative) H 09/09/24 23:24 Urine Blood Negative (Negative) 09/09/24 23:24 Urine Nitrite Negative (Negative) 09/09/24 23:24 Urine Bilirubin Negative (Negative) 09/09/24 23:24 Urine Urobilinogen Negative (Negative) 09/09/24 23:24 Ur Leukocyte Esterase Negative (Negative) 09/09/24 23:[address] 09/09/24 23:24 EXAM: CT head/brain wo con CLINICAL HISTORY: AMS TECHNIQUE: Multiple axial images are obtained from the skull base to the vertex without contrast. CT scan was performed according to ALARA (as low as reasonable achievable). COMPARISON: None. FINDINGS: There is cerebral atrophy. Osteosclerosis involving skull bones No evidence of space occupying lesion, hemorrhage, edema, mass effect, midline shift, extra axial collection, or hydrocephalus is noted. Basal cisterns are symmetric and normal in size and configuration. There are scattered periventricular hypodensities as can be seen with chronic microvascular ischemic changes. The proctor-white matter differentiation is preserved. Visualized paranasal sinuses and mastoid air cells are well aerated. Orbital contents are within normal limits. Bony structures are intact. IMPRESSION: 1. No evidence of acute intracranial abnormality is demonstrated. 2. Chronic microvascular ischemic changes. 3. Cerebral atrophy. 4. Osteosclerosis involving skull bones: advise metabolic workup Electronically signed by Austin Higuera 09-10-2024 01:48 AM Abdomen/Pelvis CT 09/09/24 23:32 EXAM: CT abd pelvis IV con only CLINICAL HISTORY: fall, pain TECHNIQUE: Multiple contiguous axial images were obtained from the level of diaphragm to the pubis symphysis. This study was acquired after the IV administration of iodinated contrast material, given the patient's indications for the examination. If IV contrast material had not been administered, the likelihood of detecting abnormalities relevant to the patient's condition would have been substantially decreased. Coronal and sagittal reformatted images were generated and reviewed to improve anatomic localization and optimize lesion detection. CT scan was performed according to ALARA (as low as reasonably achievable). COMPARISON: None. FINDINGS: The visualized lung bases are clear. ABDOMEN/PELVIS: The liver is normal in size and attenuation. No focal liver lesions are seen. There is no intra or extrahepatic biliary ductal dilatation. Hepatic vasculature is patent. Gallbladder is not visualized, cholecystectomy status. Mild bilateral perinephric fat stranding is noted, likely age related. The spleen is unremarkable. The pancreas is unremarkable. Both adrenal glands are unremarkable. The kidneys are normal in size and attenuation. There is no hydronephrosis. No renal calculi or renal masses are identified. The ureters are normal in caliber and no ureteral calculi are seen. The bladder is normal in contour. No evidence of focal or diffuse bowel wall thickening or evidence of bowel obstruction is seen. The appendix appears normal. No adenopathy or fluid collections are seen. The aorta is normal in caliber. No aggressive appearing osseous lesions are identified. Collection is noted within the endometrial cavity with suspicious enhancing soft tissue. IMPRESSION: 1. No obvious post-traumatic solid organ injury detected. 2. No free fluid is noted in the abdominopelvic cavity. 3. Hypodense collection is noted within the endometrial cavity with suspicious enhancing soft tissue. Clinical correlation/ultrasound pelvis is suggested for better evaluation. 4. Mild bilateral perinephric fat stranding, likely age related. Electronically signed by Austin Higuera 09-10-2024 02:[address] 09/09/24 23:32 EXAM: CT cervical spine wo con CLINICAL HISTORY: fall, AMS TECHNIQUE: Computed tomography of the cervical spine performed without intravenous contrast. Contiguous axial images were obtained from the skull base to T2, with sagittal and coronal reformatted images reconstructed from the axial data. CT scan was performed according to ALARA (as low as reasonably achievable). COMPARISON: None. FINDINGS: Straightening of the cervical spine is noted. Alignment of spine is maintained. Vertebral bodies are normal in height. No evidence of fracture. Lateral masses of C1 are symmetrical, and the dens is intact. Prevertebral soft tissues are not widened. The remaining suprahyoid and infrahyoid soft tissues in the neck are unremarkable. C2-C3: No disc bulge, mass effect on the cord or neuroforaminal narrowing. C3-C4: No disc bulge, mass effect on the cord or neuroforaminal narrowing. C4-C5: No disc bulge, mass effect on the cord or neuroforaminal narrowing. C5-C6: No disc bulge, mass effect on the cord or neuroforaminal narrowing. C6-C7: No disc bulge, mass effect on the cord or neuroforaminal narrowing. C7-T1: No disc bulge, mass effect on the cord or neuroforaminal narrowing. Thyroid gland appears unremarkable. IMPRESSION: 1. No acute fracture or subluxation in the cervical spine. Electronically signed by Austin Higuera 09-10-2024 01:[address] 09/09/24 23:32 EXAM: CT chest diagnostic w con CLINICAL HISTORY: fall, ams TECHNIQUE: Contiguous axial images were obtained from the neck base through the upper abdomen following intravenous administration of contrast material. If IV contrast material had not been administered, the likelihood of detecting abnormalities relevant to the patient's condition would have been substantially decreased. In addition, sagittal and coronal reconstructions were performed. CT scan was performed according to ALARA (as low as reasonably achievable). COMPARISON: none FINDINGS: The lungs are clear, with no focal areas of consolidation. No pulmonary nodules are seen. The central airways are patent. There are no pleural effusions. No pneumothorax is seen. No axillary, hilar, or mediastinal adenopathy is identified. The visualized thyroid is unremarkable. The heart, aorta, and pulmonary arteries are of normal size and configuration. No pericardial effusion is identified. Imaged portions of the upper abdomen are unremarkable. No aggressive appearing osseous lesions are identified. IMPRESSION: 1. No acute trauma related injury detected. Electronically signed by Austin Higuera 09-10-2024 02:[address] 09/09/24 23:32 EXAM: CT lumbar spine w con CLINICAL HISTORY: fall, pain TECHNIQUE: Multiple contiguous axial images were obtained through the lumbar spine without IV contrast. Sagittal and coronal reformatted images were obtained from the axial data. CT scan was performed according to ALARA (as low as reasonable achievable). COMPARISON: None. FINDINGS: The normal lordotic curvature of the lumbar spine is maintained. Lumbar vertebral bodies are maintained in height and alignment. No vertebral estructive changes are seen. T11-T12: Evaluated on sagittal images only. No disc bulge, canal stenosis or neuroforaminal narrowing. Subarticular recesses are patent. T12-L1: Evaluated on sagittal images only. No disc bulge, canal stenosis or neuroforaminal narrowing. Subarticular recesses are patent. L1-L2: No disc bulge, canal stenosis or neuroforaminal narrowing. Subarticular recesses are patent. L2-L3: No disc bulge, canal stenosis or neuroforaminal narrowing. Subarticular recesses are patent. L3-L4: No disc bulge, canal stenosis or neuroforaminal narrowing. Subarticular recesses are patent. L4-L5: No disc bulge, canal stenosis or neuroforaminal narrowing. Subarticular recesses are patent. L5-S1: Mild posterior disc osteophyte complex which indenting ventral thecal sac without significant neural foraminal narrowing. Paravertebral soft tissues are unremarkable. IMPRESSION: 1. Lumbar spondylosis. 2. No fracture or dislocation. Electronically signed by Austin Higuera 09-10-2024 01:[address] 09/09/24 23:32 EXAM: CT thoracic spine w con CLINICAL HISTORY: fall, pain TECHNIQUE: Multiple contiguous axial images were obtained through the thoracic spine without IV contrast. Sagittal and coronal reformatted images were obtained from the axial data. CT scan was performed according to ALARA (as low as reasonably achievable). COMPARISON: none FINDINGS: The alignment of the thoracic spine is maintained. Marginal osteophytes at T2/T3, T9/T10 and T10/T11 levels. Thoracic vertebral bodies are maintained in height and alignment. No vertebral destructive changes are seen. No disc bulge. No canal stenosis. No neuroforaminal narrowing. Paravertebral soft tissues are unremarkable. Visualized lung parenchyma appears unremarkable. IMPRESSION: 1. No acute fracture or subluxation in the thoracic spine. 2. Early degenerative changes in thoracic spine. Electronically signed by Austin Higuera 09-10-2024 01:39 AM Diagnostic Findings EKG as per my interpretation :Rate 80, NSR, normal axis, no ischemia
[2024-09-10] MEDS ORDERED: PROMETHAZINE 6.25 MG/50.25 ML BAG IV PRN (04:40)
--- NOTE | 2024-09-10 05:04 | Emergency Department Note ---
ED Visit Note I was consulted by the Advanced Practice Provider, Cyndy Villavicencio. I personally made/approved the management plan and take responsibility for the patient management. I performed a substantive portion of the visit. This includes the aspects of imaging study review Including head CT which is negative for acute process. Additional CT imaging reveals evidence of and endometrial fluid collection. There is no evidence of acute fracture of the spine. No acute traumatic finding on chest or abdominal CT. Laboratory work is fairly reassuring. Patient was not able to ambulate without significant assist. Case was discussed with the hospitalist service for admission and further management. .
[2024-09-10] MEDS: HEPARIN SOD 5,000 UNIT/0.5 ML VIAL SQ SCH (05:59)
[2024-09-10] MEDS ORDERED: GLUCAGON FOR INJ 1 MG VIAL SQ PRN (06:34)
[2024-09-10] MEDS ORDERED: GLUCOSE 40% GEL 15 GM TUBE PO PRN (06:34)
[2024-09-10] MEDS ORDERED: GLUCOSE 10 TAB/TUBE PO PRN (06:34)
[2024-09-10] MEDS ORDERED: CARBOHYDRATES FOR HYPOGLYCEMIA PO PRN (06:34)
[2024-09-10] MEDS: INSULIN ASPART PER UNIT CHARGE SC SCH (06:52)
[2024-09-10 08:23] LABS: Estimated Average Glucose 154 mg/dl
--- NOTE | 2024-09-10 10:26 | Electrocardiogram Report ---
Test Reason : Blood Pressure : */* mmHG Vent. Rate : 81 BPM Atrial Rate : 81 BPM P-R Int : 158 ms QRS Dur : 90 ms QT Int : 382 ms P-R-T Axes : 57 13 77 degrees QTcB Int : 443 ms Normal sinus rhythm Normal ECG No previous ECGs available Confirmed by Cecil Lewis ([id number]) on 09/10/2024 10:26:20 AM Referred By: Naveen Mccauley Confirmed By: Cecil Lewis
[2024-09-10] MEDS: DORZOLAMIDE/TIMOLOL 22.3/6.8MG/ML 10 ML BTL OP SCH (10:31)
[2024-09-10] MEDS: ASPIRIN 81 MG ECTAB PO SCH (10:32)
[2024-09-10] MEDS: EZETIMIBE 10 MG TAB PO SCH (10:32)
[2024-09-10] MEDS: OLANZapine 10 MG/2.1 ML SDV IM PRN (12:19)
--- NOTE | 2024-09-10 15:19 | Communication Note ---
Date of Service: September 10, 2024 Patient seen at bedside with family. She is slowly responding to questions. Initially, she declined to recognize her family but later she started to respond to questions Discussed with psychiatry; plan to start on IV Ativan 1 mg 3 times daily for catatonia; hold off on antipsychotic for the time being Continue IV fluids with NSS at 125 cc/h; follow-up on CK in a.m. Psychiatry to follow along Full progress note to follow tomorrow Please note the above document was generated using voice recognition software. It may contain grammatical, syntax or spelling errors. Any formal questions or concerns about the content, text or information contained within the body of this dictation should be directly addressed to the provider for clarification
[2024-09-10] MEDS: LORazepam 2 MG/1 ML VIAL IV SCH (16:00)
[2024-09-10] MEDS: SODIUM CHLORIDE 0.9% 1,000 ML IV SCH (16:28)
[2024-09-10] MEDS ORDERED: PHA DELIRIUM CONSULT PRN (16:41)
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
--- NOTE | 2024-09-10 17:09 | Ultrasound Report ---
EXAM: US pelvic complete CLINICAL HISTORY: Hypodense collection is noted within the endometrium. TECHNIQUE: Ultrasound examination of the pelvis was performed in real time and duplex using trans-abdominal and trans-vaginal approaches. The vascular flow was evaluated using color flow and with a spectral pattern of the flow waveform. COMPARISON: Prior CT dated 09/09/2024. FINDINGS: Limitations due to patient noncompliance. Uterus: The uterus measures 7.2 x 3.5 x 4.3 cm. The uterus is a normal anteverted uterus with heterogeneous myometrium and thickened heterogeneous endometrium measuring 15 mm with small cystic areas. No evidence of uterine masses, fibroids. Ovaries: Nonvisualization of the bilateral ovaries. Adnexa: No adnexal masses or free fluid Bladder: Urinary bladder: not well distended. No evidence of bladder wall thickening, masses, or intraluminal stones. Additional Findings: No pelvic free fluid. IMPRESSION: 1. Thickened heterogenous endometrium measuring 15 mm. The possibility of neoplasms cannot be excluded; further clinical, lab, and MRI evaluation is advised. Unchanged. 2. No pelvic free fluid. 3. Nonvisualization of the bilateral ovaries. RECOMMENDATIONS: Clinical correlation with symptoms and further evaluation as indicated. Electronically signed by Myron Rodney 09-10-2024 5:08 PM
[2024-09-10] MEDS: DEXTROSE 50% 50 ML SYRINGE IV PRN (20:24)
[2024-09-10] MEDS: LATANOPROST 0.005% OP SOLN 2.5 ML BTL OP SCH (20:42)
[2024-09-10] MEDS: AMANTADINE HCL 100 MG CAPSULE PO SCH (22:01)
[2024-09-11] MEDS: LORazepam 2 MG/1 ML VIAL IV STA (05:27)
[2024-09-11 06:37] LABS: Basophils # (auto) 0.09 K/uL (0.00-0.20); Eosinophils # (auto) 0.01 K/uL (0.00-0.50); Eosinophils % (auto) 0.1 %; Hematocrit (blood only) 36.8 % (37.0-47.0); Hemoglobin 11.6 g/dl (12.0-16.0); Immature Granulocytes # (auto) 0.03 K/uL (0.01-0.20); Immature Granulocytes % (auto) 0.3 %; Lymphocytes # (auto) 2.16 K/uL (1.20-3.40); Lymphocytes % (auto) 23.9 %; Mean Corpuscular Hemoglobin 27.8 pg (25.0-34.0); Mean Corpuscular Hgb Conc 31.5 g/dL (32.0-36.0); Mean Platelet Volume 10.1 fL (9.4-12.4); Monocytes # (auto) 0.68 K/uL (0.11-0.59); Monocytes % (auto) 7.5 %; Neutrophils # (auto) 6.05 K/uL (1.40-6.50); Neutrophils % (auto) 67.2 %; Platelet Count 264 K/uL (130-400); RDW Coefficient of Variation 14.4 % (11.5-14.5); RDW Standard Deviation 46.1 fL (36.4-46.3); Red Blood Count 4.18 M/uL (4.20-5.40); White Blood Count 9.02 K/ul (4.8-10.8)
[2024-09-11 07:01] LABS: BUN Creatinine Ratio 14.8 (10-20); Calcium 8.8 mg/dl (8.6-10.3); Creatinine Clr Calc Pharmacy 46.9 ml/min; Potassium 4.1 mmol/L (3.5-5.1)
--- NOTE | 2024-09-11 09:59 | Hospitalist Progress Note ---
Date of Service September 11, 2024 Assessment & Plan (1) Encephalopathy: Plan: This is a 69 yr old F who has a significant PMH of HTN, HLD, T2DM, bipolar disorder, schizoaffective disorder, chronic tremors, glaucoma, past tobacco use who presented to ED on 09/10 2/2 disorientation. Pt presented from the [facility] psych facility. Shes resides in [place], [place]. #Encephalopathy #Possible Delirious Renu and Catatonia in setting of manic episode/Bipolar pt admitted to med/tele Psych is on board Likely secondary to neuropsychotropic medication adverse effect/interaction, hx bipolar disorder, schizoaffective disorder Currently on lorazepam challenge with scheduled IV ativan and amantadine will defer re introduction of antipsychotics to psych as may worsen catatonia continue to follow CK, slightly uptrending, continue IVF Recurrent falls, possible orthostasis given hypotension at the ER, rule out seizures repeat cbc, bmp, ck #BIGG on admission cr 1.54, now down to 1.08 with IVF change IVF to include D5 due to hypogylcemia #T2DM a1c 7.0, will d/c insulin ss as pt hypoglycemic due to poor intake will add d5 to fluids until pt able to tolerate oral intake #HLD: chronic, stable continue zetia #Endometrial hypodensity on CT --CT abd/pelvis: Hypodense collection is noted within the endometrial cavity with suspicious enhancing soft tissue. Clinical correlation/ultrasound pelvis is suggested for better evaluation. will need outpt pelvic/TV US for further f/u #DVT ppx: SQ heparin FULL CODE PCP:Dr. Ribera from [place], [place] Dispo: admitted to [facility], not yet medically stable for discharge given current psychiatric state DVT prophylaxis with Heparin subcu Full code Patient requesting updates from providers. Mr. Nguyễn Ricks, contact #[phone]. I spent a total of 45 minutes coordinating, documenting and providing care for this patient excluding time spent in the performance of separately billed services or time spent by another provider/QHP. Admission and Anticipated Discharge Date Admission Date: September 10, 2024 Supervising Physician Co-Signing Physician Notes I have reviewed the advanced practitioner's documentation, and I agree with, and take responsibility for the plan of care I spent a total of 20 minutes coordinating, documenting, and providing care for this patient excluding time spent in the performance of separately billed services. All of the aforementioned completed while collaborating with the assigned advanced practitioner for a full treatment plan Subjective Pt seen and examined in room 275-2, nurse Tejal at bedside. BSG in 40s this morning and Dextrose, D50 is being administered. ROS unobtainable. nurse Tejal reports mostly not responding to staff. She is not taking in PO. Review of Systems Review of Systems: Unobtainable due to cognitive status Physical Exam Physical Exam: Gen: WD/WN, appears older than stated age, NAD, does not respond to name HEENT: Normocephalic, atraumatic, conjunctivae moist, sclerae anicteric, mucous membranes very dry Lung: Clear to Auscultation bilaterally, no wheezes/rales/rhonchi Heart: Regular rate, regular rhythm, no murmurs, rubs, or gallops Abdomen: Soft, NT, ND +BS x 4 Extremities: No edema Skin: Warm, no rash, negative turgor. Results & Data Results & Data Vital Signs (Past 12 Hours) Vital Signs Temp Pulse Pulse Resp BP Pulse Ox O2 Del Method 09/11/24 08:42 Room Air 09/11/24 07:40 36.7 C 89 16 128/61 93 Room Air 09/11/24 03:00 87 18 139/92 09/10/24 22:26 37.6 C H 85 18 142/53 H 97 Room Air 09/10/24 22:20 88 Laboratory Results Short CBC 09/11/24 Range/Units 05:59 WBC 9.02 (4.8-10.8) K/ul Hgb 11.6 L (12.0-16.0) g/dl Hct 36.8 L (37.0-47.0) % Plt Count 264 (130-400) K/uL BMP 09/11/24 05:59 Sodium 142 Potassium 4.1 Chloride 110 H Carbon Dioxide 25 BUN 16 Creatinine 1.08 Glucose 61 L Calcium 8.8 Cardiac Enzymes 09/11/24 Range/Units 05:59 Total Creatine Kinase 789 H (26-192) U/L I have independently reviewed and interpreted patient's cbc, bmp, ck Medications Administered Current Inpatient Medications Acetaminophen (Acetaminophen 325 Mg Tab) 650 mg PO QID PRN PRN Reason: pain/fever Stop: 10/10/24 04:39 Amantadine HCl (Amantadine Hcl 100 Mg Capsule) 100 mg PO BID SAL Stop: 10/10/24 20:59 Last Admin: 09/11/24 07:43 Dose: Not Given Aspirin (Aspirin 81 Mg Ectab) 81 mg PO DAILY SAL Stop: 10/10/24 08:59 Last Admin: 09/11/24 07:43 Dose: Not Given Dextrose (Dextrose 50% 50 Ml Syringe) 25 - 50 ml IV UD PRN; Protocol PRN Reason: Hypoglycemia Protocol Stop: 10/10/24 06:33 Last Admin: 09/11/24 08:33 Dose: 50 ml Dorzolamide/Timolol (Dorzolamide/Timolol 22.3/6.8mg/Ml 10 Ml Btl) 1 drops OP BID SAL Stop: 10/10/24 08:59 Last Admin: 09/11/24 07:44 Dose: 1 drops Ezetimibe (Ezetimibe 10 Mg Tab) 10 mg PO DAILY SAL Stop: 10/10/24 08:59 Last Admin: 09/11/24 07:44 Dose: Not Given Glucagon (Glucagon For Inj 1 Mg Vial) 1 mg SQ UD PRN; Protocol PRN Reason: Hypoglycemia Protocol Stop: 10/10/24 06:33 Glucose (Glucose 40% Gel 15 Gm Tube) 15 - 30 gm PO UD PRN; Protocol PRN Reason: Hypoglycemia Protocol Stop: 10/10/24 06:33 Glucose (Glucose 10 Tab/Tube) 4 - 8 tab PO UD PRN; Protocol PRN Reason: Hypoglycemia Protocol Stop: 10/10/24 06:33 Heparin Sodium (Porcine) (Heparin Sod 5,000 Unit/0.5 Ml Vial) 5,000 units SQ Q8 SAL Stop: 10/10/24 05:59 Last Admin: 09/11/24 05:48 Dose: Not Given Promethazine HCl (Phenergan) 6.25 mg in 50.25 mls @ 201 mls/hr IV Q6H PRN PRN Reason: Nausea And Vomiting Stop: 10/10/24 04:39 Dextrose/Sodium Chloride (For D5w And Nss) 1,000 mls @ 125 mls/hr IV .Q8H [facility] Stop: 09/12/24 15:28 Last Admin: 09/11/24 10:45 Dose: 125 mls/hr Thiamine HCl 200 mg/ Sodium (Chloride) 52 mls @ 210 mls/hr IV Q8H SAL Stop: 10/11/24 11:59 Last Admin: 09/11/24 12:08 Dose: 210 mls/hr Latanoprost (Latanoprost 0.005% Op Soln 2.5 Ml Btl) 1 drops OP HS SAL Stop: 10/10/24 20:59 Last Admin: 09/10/24 20:42 Dose: Not Given Lorazepam (Lorazepam 2 Mg/1 Ml Vial) 1 mg IV Q8H SAL Stop: 10/10/24 15:14 Last Admin: 09/11/24 07:34 Dose: 1 mg Miconazole Nitrate (Miconazole Nitrate Powder 85 Gm) 1 appln EXT PRN PRN PRN Reason: Affected Skin Folds Stop: 10/11/24 07:03 Miscellaneous (Carbohydrates For Hypoglycemia ) 15 - 30 gm PO UD PRN PRN Reason: Hypoglycemia Protocol Stop: 10/10/24 06:33
[2024-09-11] MEDS: D5W AND NSS 1,000 ML IV SCH (10:45)
[2024-09-11] MEDS: THIAMINE HCL 200 MG in SODIUM CHLORIDE 0.9% 50 ML IV SCH (12:08)
[2024-09-11] MEDS: MICONAZOLE NITRATE POWDER 85 GM EXT PRN (13:43)
--- NOTE | 2024-09-11 15:21 | Psychiatric Progress Note ---
Date of Service September 11, 2024 Impression / Recommendations Impression 69 y/o F h/o hypertension, hyperlipidemia, DM 2 on Ozempic, schizoaffective disorder, bipolar type, tremors, glaucoma, past tobacco abuse who presents from outside psychiatric facility ([facility]) with recurrent falls. Psychiatry consulted for evaluation. Concern for a delirious renu and catatonia (staring spells, posturing, possible stereotypy) secondary to a manic episode. History of a bipolar condition with past manic episode and stabilization on antipsychotic with stability for years. Concern for recent paranoia, psychosis, decreased need for sleep, psychomotor agitation, mood lability, confusion in the context of medication non-adherence. Given long history of antipsychotic use there is concern for autometabolism leading to medication failure and may have been a factor in renu recurrence. Considered neuroleptic malignant syndrome however unlikely. Possible withdrawal from amantadine. Per collateral, on recent hospitalization she responded well to Lorazepam challenge and presented improvement in mental status. Her ziprasidone was restarted with improvement in mood and function and then later decompensated with worsening confusion and recurrent falls. Unclear if lorazepam was tapered off and may have been d/c abruptly during hospital transfer to outside psychiatric facility. Labs and imaging reviewed: CTH with microvascular changes, no active bleeding; Cr 1.37 and trending down, A1C of 7.0, CBC unremarkable, CK 535 and trending up. Would recommend scheduled Lorazepam and assess for improvements in orientation, affect, and movements. Plan to reintroduce antipsychotic carefully as D2 blockade from the medication may worsen catatonia. Concern for on-going psychomotor agitation. Recommend to restart Amantadine as it can cause withdrawal effects with abrupt discontinuation (similar symptom profile during withdrawal, pt has been on 200mg over a year and recently increased to 300mg). Psychiatry service to follow. Consider bedside sitter if patient presents erratic behaviors. A:Overnight poor sleep. Today patient is more responsive, able to engage in simple questioning, more oriented, demonstrating less psychomotor agitation, less muscle rigidity on exam. Continues to hallucinate and seen responding to internal stimuli however frequency is less and able to be redirected. Recommend to optimize nightly Lorazepam dose to 2mg HS. CK trending up and continue to draw level tomorrow. Overall, I spent a total of 40 minutes with this case including review of chart records, nursing report, review of lab work, direct evaluation of the patient at bedside, counseling the patient, discussion of the patient with the hospitalist provider, discussion with the psychiatric liaison during clinical rounds, gathering collateral from family and documentation in the electronic health record. (1) Renu: (2) Unspecified psychosis not due to a substance or known physiological condition: (3) Delirium: (4) Falls: (5) Catatonia: (6) Schizoaffective disorder, bipolar type: (7) Medication withdrawal: Plan 09/11/24 Lorazepam 1mg QAM, Q2pm IV/IM Lorazepam 2mg QHS IV/IM Continue Amantadine 100mg BID Repeat CK 09/10/24 Lorazepam 1mg TID IV/IM Restart Amantadine at 100mg BID Hold antipsychotics if possible Do not restart home bupropion Repeat CK given psychomotor agitation Encourage hydration, follow renal function Psychiatry service to follow daily Interval History Identifying Information 69 y/o F h/o hypertension, hyperlipidemia, DM 2 on Ozempic, schizoaffective disorder, bipolar type, tremors, glaucoma, past tobacco abuse who presents from outside psychiatric facility ([facility]) with recurrent falls. Psychiatry consulted for evaluation. Chief Complaint Renu, catatonia, delirium Subjective Subjective On approach pt is responsive to her name. Able to state her 's name. Responsive to simple questions or commands. Denies pain. On exam, no muscle rigidity identified. Showing expression on face. No uncontrolled movements seen. Briefly seen responding to internal stimuli and able to be redirected. Per chart, pt slept 2-3 hours overnight. Physical Exam Mental Examination Appearance: Disheveled Eye Contact: Sporadic Contact Motor Behavior: Tremulous Speech: Soft, Slurred and Poverty of Speech Affect: Anxious Thought Process: Disorganized and Linear (more so today) Thought Content: Disorganized Hallucinations: Auditory and Visual Insight: Poor Judgement: Poor Vital Signs (Past 24 Hours) Last Vital Signs Temp 36.7 C 09/11/24 07:40 Pulse 89 09/11/24 07:40 Resp 16 09/11/24 07:40 BP 128/61 09/11/24 07:40 Pulse Ox 93 09/11/24 07:40 O2 Del Method Room Air 09/11/24 08:42 O2 Flow Rate 8 09/10/24 00:41 Results & Data (U) Laboratory Results Laboratory Results - last 24 hr 09/10/24 09/10/24 09/10/24 16:12 20:10 20:12 WBC RBC Hgb Hct MCV MCH MCHC RDW Std Deviation RDW Coeff of Onesimo Plt Count MPV Immature Gran % (Auto) Neut % (Auto) Lymph % (Auto) Hamlin % (Auto) Eos % (Auto) Baso % (Auto) Neut # (Auto) Lymph # (Auto) Hamlin # (Auto) Eos # (Auto) Baso # (Auto) Immature Gran # (Auto) Sodium Potassium Chloride Carbon Dioxide Anion Gap BUN Creatinine Est Cr Clr Drug Dosing eGFR BUN/Creatinine Ratio Glucose POC Glucose 86 63 L* 64 L* Calcium Total Creatine Kinase Nasal Screen MRSA (PCR) 09/10/24 09/10/24 09/11/24 20:38 Unknown 05:59 WBC 9.02 RBC 4.18 L Hgb 11.6 L Hct 36.8 L MCV 88.0 MCH 27.8 MCHC 31.5 L RDW Std Deviation 46.1 RDW Coeff of Onesimo 14.4 Plt Count 264 MPV 10.1 Immature Gran % (Auto) 0.3 Neut % (Auto) 67.2 Lymph % (Auto) 23.9 Hamlin % (Auto) 7.5 Eos % (Auto) 0.1 Baso % (Auto) 1.0 Neut # (Auto) 6.05 Lymph # (Auto) 2.16 Hamlin # (Auto) 0.68 H Eos # (Auto) 0.01 Baso # (Auto) 0.09 Immature Gran # (Auto) 0.03 Sodium 142 Potassium 4.1 Chloride 110 H Carbon Dioxide 25 Anion Gap 7 BUN 16 Creatinine 1.08 Est Cr Clr Drug Dosing 46.9 eGFR 55.95 BUN/Creatinine Ratio 14.8 Glucose 61 L POC Glucose 146 H Calcium 8.8 Total Creatine Kinase 789 H Nasal Screen MRSA (PCR) Positive A 09/11/24 09/11/24 09/11/24 08:22 08:24 08:54 WBC RBC Hgb Hct MCV MCH MCHC RDW Std Deviation RDW Coeff of Onesimo Plt Count MPV Immature Gran % (Auto) Neut % (Auto) Lymph % (Auto) Hamlin % (Auto) Eos % (Auto) Baso % (Auto) Neut # (Auto) Lymph # (Auto) Hamlin # (Auto) Eos # (Auto) Baso # (Auto) Immature Gran # (Auto) Sodium Potassium Chloride Carbon Dioxide Anion Gap BUN Creatinine Est Cr Clr Drug Dosing eGFR BUN/Creatinine Ratio Glucose POC Glucose 47 L* 42 L* 88 Calcium Total Creatine Kinase Nasal Screen MRSA (PCR) 09/11/24 09/11/24 09/11/24 10:36 10:39 10:40 WBC RBC Hgb Hct MCV MCH MCHC RDW Std Deviation RDW Coeff of Onesimo Plt Count MPV Immature Gran % (Auto) Neut % (Auto) Lymph % (Auto) Hamlin % (Auto) Eos % (Auto) Baso % (Auto) Neut # (Auto) Lymph # (Auto) Hamlin # (Auto) Eos # (Auto) Baso # (Auto) Immature Gran # (Auto) Sodium Potassium Chloride Carbon Dioxide Anion Gap BUN Creatinine Est Cr Clr Drug Dosing eGFR BUN/Creatinine Ratio Glucose POC Glucose 67 L* 97 109 H Calcium Total Creatine Kinase Nasal Screen MRSA (PCR) 09/11/24 09/11/24 12:03 14:39 WBC RBC Hgb Hct MCV MCH MCHC RDW Std Deviation RDW Coeff of Onesimo Plt Count MPV Immature Gran % (Auto) Neut % (Auto) Lymph % (Auto) Hamlin % (Auto) Eos % (Auto) Baso % (Auto) Neut # (Auto) Lymph # (Auto) Hamlin # (Auto) Eos # (Auto) Baso # (Auto) Immature Gran # (Auto) Sodium Potassium Chloride Carbon Dioxide Anion Gap BUN Creatinine Est Cr Clr Drug Dosing eGFR BUN/Creatinine Ratio Glucose POC Glucose 79 76 Calcium Total Creatine Kinase Nasal Screen MRSA (PCR) Current Inpatient Medications Current Inpatient Medications: Current Inpatient Medications Acetaminophen (Acetaminophen 325 Mg Tab) 650 mg PO QID PRN PRN Reason: pain/fever Stop: 10/10/24 04:39 Amantadine HCl (Amantadine Hcl 100 Mg Capsule) 100 mg PO BID SAL Stop: 10/10/24 20:59 Last Admin: 09/11/24 07:43 Dose: Not Given Aspirin (Aspirin 81 Mg Ectab) 81 mg PO DAILY SAL Stop: 10/10/24 08:59 Last Admin: 09/11/24 07:43 Dose: Not Given Dextrose (Dextrose 50% 50 Ml Syringe) 25 - 50 ml IV UD PRN; Protocol PRN Reason: Hypoglycemia Protocol Stop: 10/10/24 06:33 Last Admin: 09/11/24 08:33 Dose: 50 ml Dorzolamide/Timolol (Dorzolamide/Timolol 22.3/6.8mg/Ml 10 Ml Btl) 1 drops OP BID SAL Stop: 10/10/24 08:59 Last Admin: 09/11/24 07:44 Dose: 1 drops Ezetimibe (Ezetimibe 10 Mg Tab) 10 mg PO DAILY SAL Stop: 10/10/24 08:59 Last Admin: 09/11/24 07:44 Dose: Not Given Glucagon (Glucagon For Inj 1 Mg Vial) 1 mg SQ UD PRN; Protocol PRN Reason: Hypoglycemia Protocol Stop: 10/10/24 06:33 Glucose (Glucose 40% Gel 15 Gm Tube) 15 - 30 gm PO UD PRN; Protocol PRN Reason: Hypoglycemia Protocol Stop: 10/10/24 06:33 Glucose (Glucose 10 Tab/Tube) 4 - 8 tab PO UD PRN; Protocol PRN Reason: Hypoglycemia Protocol Stop: 10/10/24 06:33 Heparin Sodium (Porcine) (Heparin Sod 5,000 Unit/0.5 Ml Vial) 5,000 units SQ Q8 SAL Stop: 10/10/24 05:59 Last Admin: 09/11/24 13:09 Dose: 5,000 units Promethazine HCl (Phenergan) 6.25 mg in 50.25 mls @ 201 mls/hr IV Q6H PRN PRN Reason: Nausea And Vomiting Stop: 10/10/24 04:39 Dextrose/Sodium Chloride (For D5w And Nss) 1,000 mls @ 125 mls/hr IV .Q8H SAL Stop: 09/12/24 15:28 Last Admin: 09/11/24 10:45 Dose: 125 mls/hr Thiamine HCl 200 mg/ Sodium (Chloride) 52 mls @ 210 mls/hr IV Q8H SAL Stop: 10/11/24 11:59 Last Infusion: 09/11/24 12:32 Dose: Infused Latanoprost (Latanoprost 0.005% Op Soln 2.5 Ml Btl) 1 drops OP HS SAL Stop: 10/10/24 20:59 Last Admin: 09/10/24 20:42 Dose: Not Given Lorazepam (Lorazepam 2 Mg/1 Ml Vial) 1 mg IV Q8H SAL Stop: 10/10/24 15:14 Last Admin: 09/11/24 14:44 Dose: 1 mg Miconazole Nitrate (Miconazole Nitrate Powder 85 Gm) 1 appln EXT PRN PRN PRN Reason: Affected Skin Folds Stop: 10/11/24 07:03 Last Admin: 09/11/24 13:43 Dose: 1 appln Miscellaneous (Carbohydrates For Hypoglycemia ) 15 - 30 gm PO UD PRN PRN Reason: Hypoglycemia Protocol Stop: 10/10/24 06:33
[2024-09-11] MEDS: LORazepam 2 MG/1 ML VIAL IV SCH (21:13)
[2024-09-12] MEDS: LORazepam 2 MG/1 ML VIAL IV SCH (06:26)
[2024-09-12 08:45] LABS: Hematocrit (blood only) 35.7 % (37.0-47.0); Hemoglobin 11.6 g/dl (12.0-16.0); Mean Corpuscular Hemoglobin 27.8 pg (25.0-34.0); Mean Corpuscular Hgb Conc 32.5 g/dL (32.0-36.0); Mean Corpuscular Volume 85.6 fL (80.0-100.0); Platelet Count 222 K/uL (130-400); RDW Coefficient of Variation 14.4 % (11.5-14.5); RDW Standard Deviation 45.1 fL (36.4-46.3); Red Blood Count 4.17 M/uL (4.20-5.40); White Blood Count 6.62 K/ul (4.8-10.8)
[2024-09-12 09:04] LABS: BUN Creatinine Ratio 9.5 (10-20); Calcium 8.2 mg/dl (8.6-10.3); Creatinine Clr Calc Pharmacy 60.2 ml/min; Potassium 3.4 mmol/L (3.5-5.1)
[2024-09-12] MEDS: MUPIROCIN 2% OINT 22 GM TUBE EXT SCH (09:20)
[2024-09-12] MEDS: DEXTROSE 10% 1,000 ML IV SCH (09:26)
--- NOTE | 2024-09-12 13:01 | Hospitalist Progress Note ---
Date of Service September 12, 2024 Assessment & Plan (1) Encephalopathy: Plan: This is a 69 yr old F who has a significant PMH of HTN, HLD, T2DM, bipolar disorder, schizoaffective disorder, chronic tremors, glaucoma, past tobacco use who presented to ED on 09/10 2/2 disorientation. Pt presented from the [facility] psych facility. Shes resides in [place], [place]. #Encephalopathy #Possible Delirious Renu and Catatonia in setting of manic episode/Bipolar pt admitted to med/tele Psych is on board Likely secondary to neuropsychotropic medication adverse effect/interaction, hx bipolar disorder, schizoaffective disorder Currently on lorazepam challenge with scheduled IV ativan and amantadine on 09/12 Psych recommended to increase lorazepam at HS to 2mg will defer re introduction of antipsychotics to psych as may worsen catatonia CK trending down, switch IVF to D10 due to hypoglycemia until pt toleating oral intake Recurrent falls, possible orthostasis given hypotension at the ER, rule out seizures await eeg results defer further med adjustments to psych #BIGG on admission cr 1.54, now down to 0.84 change IVF from D5 NSS to D10 due to hypoglycemic episodes #Hypokalemia: replace, repeat bmp in a.m. #T2DM a1c 7.0, will d/c insulin ss as pt hypoglycemic due to poor intake Started on D10 due to intermittent hypoglycemia in setting of no intake Random a.m. cortisol was normal #HLD: chronic, stable continue zetia #Endometrial hypodensity on CT --CT abd/pelvis: Hypodense collection is noted within the endometrial cavity with suspicious enhancing soft tissue. Clinical correlation/ultrasound pelvis is suggested for better evaluation. will need outpt pelvic/TV US for further f/u #DVT ppx: SQ heparin FULL CODE PCP:Dr. Ribera from [place], [place] Dispo: admitted to medical, not yet medically stable for discharge given current psychiatric state DVT prophylaxis with Heparin subcu Full code Patient requesting updates from providers. Mr. Nguyễn Ricks, contact #[phone]. I spent a total of 42 minutes coordinating, documenting and providing care for this patient excluding time spent in the performance of separately billed services or time spent by another provider/QHP. Admission and Anticipated Discharge Date Admission Date: September 11, 2024 Supervising Physician Co-Signing Physician Notes I have reviewed the advanced practitioner's documentation, and I agree with, and take responsibility for the plan of care I spent a total of 20 minutes coordinating, documenting, and providing care for this patient excluding time spent in the performance of separately billed services. All of the aforementioned completed while collaborating with the assigned advanced practitioner for a full treatment plan Subjective Pt seen in room 316. Bedside sitter at beside. ROS unobtainable due to cognition. Review of Systems Review of Systems: Unobtainable due to cognitive status Physical Exam Physical Exam: Gen: WD/WN, appears older than stated age, NAD, does open eyes to verbal stimuli which is an improvement from yesterday HEENT: Normocephalic, atraumatic, conjunctivae moist, sclerae anicteric, mucous membranes very dry Lung: Clear to Auscultation bilaterally, no wheezes/rales/rhonchi Heart: Regular rate, regular rhythm, no murmurs, rubs, or gallops Abdomen: Soft, NT, ND +BS x 4 Extremities: No edema Skin: Warm, no rash, negative turgor. Results & Data Results & Data Vital Signs (Past 12 Hours) Vital Signs Temp Pulse Resp BP Pulse Ox O2 Del Method 09/12/24 07:49 36.7 C 74 18 146/87 H 97 Room Air Medications Administered Current Inpatient Medications Acetaminophen (Acetaminophen 325 Mg Tab) 650 mg PO QID PRN PRN Reason: pain/fever Stop: 10/10/24 04:39 Amantadine HCl (Amantadine Hcl 100 Mg Capsule) 100 mg PO BID SAL Stop: 10/10/24 20:59 Last Admin: 09/12/24 09:19 Dose: Not Given Aspirin (Aspirin 81 Mg Ectab) 81 mg PO DAILY SAL Stop: 10/10/24 08:59 Last Admin: 09/12/24 09:20 Dose: Not Given Dextrose (Dextrose 50% 50 Ml Syringe) 25 - 50 ml IV UD PRN; Protocol PRN Reason: Hypoglycemia Protocol Stop: 10/10/24 06:33 Last Admin: 09/11/24 08:33 Dose: 50 ml Dorzolamide/Timolol (Dorzolamide/Timolol 22.3/6.8mg/Ml 10 Ml Btl) 1 drops OP BID SAL Stop: 10/10/24 08:59 Last Admin: 09/12/24 09:20 Dose: 1 drops Ezetimibe (Ezetimibe 10 Mg Tab) 10 mg PO DAILY SAL Stop: 10/10/24 08:59 Last Admin: 09/12/24 09:20 Dose: Not Given Glucagon (Glucagon For Inj 1 Mg Vial) 1 mg SQ UD PRN; Protocol PRN Reason: Hypoglycemia Protocol Stop: 10/10/24 06:33 Glucose (Glucose 40% Gel 15 Gm Tube) 15 - 30 gm PO UD PRN; Protocol PRN Reason: Hypoglycemia Protocol Stop: 10/10/24 06:33 Glucose (Glucose 10 Tab/Tube) 4 - 8 tab PO UD PRN; Protocol PRN Reason: Hypoglycemia Protocol Stop: 10/10/24 06:33 Heparin Sodium (Porcine) (Heparin Sod 5,000 Unit/0.5 Ml Vial) 5,000 units SQ Q8 SAL Stop: 10/10/24 05:59 Last Admin: 09/12/24 06:27 Dose: 5,000 units Promethazine HCl (Phenergan) 6.25 mg in 50.25 mls @ 201 mls/hr IV Q6H PRN PRN Reason: Nausea And Vomiting Stop: 10/10/24 04:39 Thiamine HCl 200 mg/ Sodium (Chloride) 52 mls @ 210 mls/hr IV Q8H SAL Stop: 10/11/24 11:59 Last Infusion: 09/12/24 04:15 Dose: Infused Dextrose (D10w) 1,000 mls @ 50 mls/hr IV .Q20H SAL Stop: 10/12/24 09:29 Last Admin: 09/12/24 09:26 Dose: 50 mls/hr Latanoprost (Latanoprost 0.005% Op Soln 2.5 Ml Btl) 1 drops OP HS SAL Stop: 10/10/24 20:59 Last Admin: 09/11/24 23:36 Dose: Not Given Lorazepam (Lorazepam 2 Mg/1 Ml Vial) 1 mg IV [id number] SAL Stop: 10/12/24 06:59 Last Admin: 09/12/24 06:26 Dose: 1 mg Lorazepam (Lorazepam 2 Mg/1 Ml Vial) 2 mg IV HS SAL Stop: 10/11/24 20:59 Last Admin: 09/11/24 21:13 Dose: 2 mg Miconazole Nitrate (Miconazole Nitrate Powder 85 Gm) 1 appln EXT PRN PRN PRN Reason: Affected Skin Folds Stop: 10/11/24 07:03 Last Admin: 09/11/24 13:43 Dose: 1 appln Miscellaneous (Carbohydrates For Hypoglycemia ) 15 - 30 gm PO UD PRN PRN Reason: Hypoglycemia Protocol Stop: 10/10/24 06:33 Mupirocin (Mupirocin 2% Oint 22 Gm Tube) 1 appln EXT BID SAL Stop: 09/17/24 08:59 Last Admin: 09/12/24 09:20 Dose: 1 appln
[2024-09-12] MEDS: POTASSIUM CHLORIDE / WTR 10 MEQ/100 ML PLCT IV SCH (13:58)
--- NOTE | 2024-09-12 15:37 | Psychiatric Progress Note ---
Date of Service September 12, 2024 Impression / Recommendations Impression 69 y/o F h/o hypertension, hyperlipidemia, DM 2 on Ozempic, schizoaffective disorder, bipolar type, tremors, glaucoma, past tobacco abuse who presents from outside psychiatric facility ([facility]) with recurrent falls. Psychiatry consulted for evaluation. Concern for a delirious renu and catatonia (staring spells, posturing, possible stereotypy) secondary to a manic episode. History of a bipolar condition with past manic episode and stabilization on antipsychotic with stability for years. Concern for recent paranoia, psychosis, decreased need for sleep, psychomotor agitation, mood lability, confusion in the context of medication non-adherence. Given long history of antipsychotic use there is concern for autometabolism leading to medication failure and may have been a factor in renu recurrence. Considered neuroleptic malignant syndrome however unlikely. Possible withdrawal from amantadine. Per collateral, on recent hospitalization she responded well to Lorazepam challenge and presented improvement in mental status. Her ziprasidone was restarted with improvement in mood and function and then later decompensated with worsening confusion and recurrent falls. Unclear if lorazepam was tapered off and may have been d/c abruptly during hospital transfer to outside psychiatric facility. Labs and imaging reviewed: CTH with microvascular changes, no active bleeding; Cr 1.37 and trending down, A1C of 7.0, CBC unremarkable, CK 535 and trending up. Would recommend scheduled Lorazepam and assess for improvements in orientation, affect, and movements. Plan to reintroduce antipsychotic carefully as D2 blockade from the medication may worsen catatonia. Concern for on-going psychomotor agitation. Recommend to restart Amantadine as it can cause withdrawal effects with abrupt discontinuation (similar symptom profile during withdrawal, pt has been on 200mg over a year and recently increased to 300mg). Psychiatry service to follow. Consider bedside sitter if patient presents erratic behaviors. A:Reviewed records from outside psych facility. Patient waxing and waning however more lucid. Appears to be responding to lorazepam well. Improvement in sleep. Less mutism, psychomotor agitation. CK downtrending. Recommend to continue current lorazepam with plan to initiate mood stabilizer soon. Overall, I spent a total of 40 minutes with this case including review of chart records, nursing report, review of lab work, direct evaluation of the patient at bedside, counseling the patient, discussion of the patient with the hospitalist provider, discussion with the psychiatric liaison during clinical rounds, gathering collateral from family and documentation in the electronic health record. (1) Renu: (2) Unspecified psychosis not due to a substance or known physiological condition: (3) Delirium: (4) Falls: (5) Catatonia: (6) Schizoaffective disorder, bipolar type: (7) Medication withdrawal: Plan 09/12/24 Continue Lorazepam, Amantadine 09/11/24 Lorazepam 1mg QAM, Q2pm IV/IM Lorazepam 2mg QHS IV/IM Continue Amantadine 100mg BID Repeat CK 09/10/24 Lorazepam 1mg TID IV/IM Restart Amantadine at 100mg BID Hold antipsychotics if possible Do not restart home bupropion Repeat CK given psychomotor agitation Encourage hydration, follow renal function Psychiatry service to follow daily Interval History Identifying Information 69 y/o F h/o hypertension, hyperlipidemia, DM 2 on Ozempic, schizoaffective disorder, bipolar type, tremors, glaucoma, past tobacco abuse who presents from outside psychiatric facility ([facility]) with recurrent falls. Psychiatry consulted for evaluation. Chief Complaint AMS Subjective Subjective Seen this AM, pt was responsive to name and 's name. Had difficulty with questions. Appears slightly agitated and required frequent redirect. Seen again this afternoon, pt was AO to self, hospital, this physician, 's name. Able to respond more appropriately. Did not appear agitated and able to attend to questions. Continued speech impediment. Received and reviewed records from [facility] psych facility: Initial evaluation on 09/02/2024 patient arrived to the [facility] on a 201 voluntary basis. Patient was complaining that the man was commanding her to do things, was not sleeping, was hyperreligious, was paranoid, complaining of auditory hallucinations. History of manic episodes with past depression. Diagnosed schizoaffective disorder bipolar type and generalized anxiety disorder. Tremors, diabetes mellitus, arthritis. Was ambulating with a walker. 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 Recent anxiety and elevated blood pressures. Progress notes patient was confused at times, had difficulty expressing her thoughts, was hyperreligious, noted to be delusional and paranoid with internal preoccupation. She was restarted on her home ziprasidone 60 mg daily and continued on home amantadine 100 mg in the morning and 200 mg at bedtime. No mention of recent hospitalization at [facility] and use of lorazepam for catatonia. Noted that patient had mild psychomotor retardation and limited facial expression. Patient was having sleep difficulties and eating poorly. On 09/07/2024 patient had fell twice the day before and was feeling anxious and nervous. Minimal facial expression and variable eye contact. Continued thought disorganization. Denial of hallucinations or delusions. on 09/09/2024 seen by medical nurse practitioner who reports patient had 3 on observed falls overnight and patient had stated that "Satan pushed me each time". Patient continued to have minimal facial expression. Has some internal preoccupation. No discharge summary in the records. Physical Exam Mental Examination Appearance: Disheveled Eye Contact: Sporadic Contact Motor Behavior: Tremulous Speech: Soft, Slurred and Poverty of Speech Affect: Anxious Thought Process: Disorganized and Linear (waxing and wanng) Thought Content: Disorganized Hallucinations: Auditory and Visual Insight: Poor Judgement: Poor Vital Signs (Past 24 Hours) Last Vital Signs Temp 36.6 C 09/12/24 15:12 Pulse 75 09/12/24 15:12 Resp 18 09/12/24 15:12 BP 137/82 09/12/24 15:12 Pulse Ox 96 09/12/24 15:12 O2 Del Method Room Air 09/12/24 15:12 O2 Flow Rate 8 09/10/24 00:41 Results & Data ([facility]) Laboratory Results Laboratory Results - last 24 hr 09/11/24 09/11/24 09/11/24 16:03 20:16 20:18 WBC RBC Hgb Hct MCV MCH MCHC RDW Std Deviation RDW Coeff of Onesimo Plt Count MPV Sodium Potassium Chloride Carbon Dioxide Anion Gap BUN Creatinine Est Cr Clr Drug Dosing eGFR BUN/Creatinine Ratio Glucose POC Glucose 85 64 L* 33 L* Calcium Total Creatine Kinase Random Cortisol 09/11/24 09/11/24 09/11/24 20:20 20:48 23:57 WBC RBC Hgb Hct MCV MCH MCHC RDW Std Deviation RDW Coeff of Onesimo Plt Count MPV Sodium Potassium Chloride Carbon Dioxide Anion Gap BUN Creatinine Est Cr Clr Drug Dosing eGFR BUN/Creatinine Ratio Glucose 86 POC Glucose 61 L* 110 H Calcium Total Creatine Kinase Random Cortisol 09/12/24 09/12/24 09/12/24 05:23 07:27 07:39 WBC 6.62 RBC 4.17 L Hgb 11.6 L Hct 35.7 L MCV 85.6 MCH 27.8 MCHC 32.5 RDW Std Deviation 45.1 RDW Coeff of Onesimo 14.4 Plt Count 222 MPV 10.0 Sodium 141 Potassium 3.4 L Chloride 112 H Carbon Dioxide 23 Anion Gap 6 BUN 8 Creatinine 0.84 Est Cr Clr Drug Dosing 60.2 eGFR 75.65 BUN/Creatinine Ratio 9.5 L Glucose 129 H POC Glucose 102 H 124 H Calcium 8.2 L Total Creatine Kinase 529 H Random Cortisol 14.07 09/12/24 11:38 WBC RBC Hgb Hct MCV MCH MCHC RDW Std Deviation RDW Coeff of Onesimo Plt Count MPV Sodium Potassium Chloride Carbon Dioxide Anion Gap BUN Creatinine Est Cr Clr Drug Dosing eGFR BUN/Creatinine Ratio Glucose POC Glucose 120 H Calcium Total Creatine Kinase Random Cortisol Current Inpatient Medications Current Inpatient Medications: Current Inpatient Medications Acetaminophen (Acetaminophen 325 Mg Tab) 650 mg PO QID PRN PRN Reason: pain/fever Stop: 10/10/24 04:39 Amantadine HCl (Amantadine Hcl 100 Mg Capsule) 100 mg PO BID SAL Stop: 10/10/24 20:59 Last Admin: 09/12/24 09:19 Dose: Not Given Aspirin (Aspirin 81 Mg Ectab) 81 mg PO DAILY SAL Stop: 10/10/24 08:59 Last Admin: 09/12/24 09:20 Dose: Not Given Dextrose (Dextrose 50% 50 Ml Syringe) 25 - 50 ml IV UD PRN; Protocol PRN Reason: Hypoglycemia Protocol Stop: 10/10/24 06:33 Last Admin: 09/11/24 08:33 Dose: 50 ml Dorzolamide/Timolol (Dorzolamide/Timolol 22.3/6.8mg/Ml 10 Ml Btl) 1 drops OP BID SAL Stop: 10/10/24 08:59 Last Admin: 09/12/24 09:20 Dose: 1 drops Ezetimibe (Ezetimibe 10 Mg Tab) 10 mg PO DAILY SAL Stop: 10/10/24 08:59 Last Admin: 09/12/24 09:20 Dose: Not Given Glucagon (Glucagon For Inj 1 Mg Vial) 1 mg SQ UD PRN; Protocol PRN Reason: Hypoglycemia Protocol Stop: 10/10/24 06:33 Glucose (Glucose 40% Gel 15 Gm Tube) 15 - 30 gm PO UD PRN; Protocol PRN Reason: Hypoglycemia Protocol Stop: 10/10/24 06:33 Glucose (Glucose 10 Tab/Tube) 4 - 8 tab PO UD PRN; Protocol PRN Reason: Hypoglycemia Protocol Stop: 10/10/24 06:33 Heparin Sodium (Porcine) (Heparin Sod 5,000 Unit/0.5 Ml Vial) 5,000 units SQ Q8 SAL Stop: 10/10/24 05:59 Last Admin: 09/12/24 14:00 Dose: 5,000 units Promethazine HCl (Phenergan) 6.25 mg in 50.25 mls @ 201 mls/hr IV Q6H PRN PRN Reason: Nausea And Vomiting Stop: 10/10/24 04:39 Thiamine HCl 200 mg/ Sodium (Chloride) 52 mls @ 210 mls/hr IV Q8H SAL Stop: 10/11/24 11:59 Last Infusion: 09/12/24 13:25 Dose: Infused Dextrose (D10w) 1,000 mls @ 50 mls/hr IV .Q20H SAL Stop: 10/12/24 09:29 Last Admin: 09/12/24 09:26 Dose: 50 mls/hr Latanoprost (Latanoprost 0.005% Op Soln 2.5 Ml Btl) 1 drops OP HS SAL Stop: 10/10/24 20:59 Last Admin: 09/11/24 23:36 Dose: Not Given Lorazepam (Lorazepam 2 Mg/1 Ml Vial) 1 mg IV [id number] SAL Stop: 10/12/24 06:59 Last Admin: 09/12/24 14:24 Dose: 1 mg Lorazepam (Lorazepam 2 Mg/1 Ml Vial) 2 mg IV HS SAL Stop: 10/11/24 20:59 Last Admin: 09/11/24 21:13 Dose: 2 mg Miconazole Nitrate (Miconazole Nitrate Powder 85 Gm) 1 appln EXT PRN PRN PRN Reason: Affected Skin Folds Stop: 10/11/24 07:03 Last Admin: 09/11/24 13:43 Dose: 1 appln Miscellaneous (Carbohydrates For Hypoglycemia ) 15 - 30 gm PO UD PRN PRN Reason: Hypoglycemia Protocol Stop: 10/10/24 06:33 Mupirocin (Mupirocin 2% Oint 22 Gm Tube) 1 appln EXT BID SAL Stop: 09/17/24 08:59 Last Admin: 09/12/24 09:20 Dose: 1 appln
[2024-09-13 07:25] LABS: Calcium 8.5 mg/dl (8.6-10.3); Creatinine Clr Calc Pharmacy 58.2 ml/min; Potassium 3.4 mmol/L (3.5-5.1)
--- NOTE | 2024-09-13 07:30 | Hospitalist Progress Note ---
Date of Service September 13, 2024 Assessment & Plan (1) Encephalopathy: Plan: This is a 69 yr old F who has a significant PMH of HTN, HLD, T2DM, bipolar disorder, schizoaffective disorder, chronic tremors, glaucoma, past tobacco use who presented to ED on 09/10 2/2 disorientation. Pt presented from the [facility]. Shes resides in [place], [place]. Encephalopathy Possible Delirious Renu and Catatonia in setting of manic episode/Bipolar pt admitted to med/tele Psych is on board Likely secondary to neuropsychotropic medication adverse effect/interaction, hx bipolar disorder, schizoaffective disorder Currently on lorazepam challenge with scheduled IV ativan and amantadine 09/12 Psych recommended to increase lorazepam at HS to 2mg will defer re introduction of antipsychotics to psych as may worsen catatonia CK trending down 500--> 216. Recurrent falls, possible orthostasis given hypotension at the ER, rule out seizures EEG results pending discussed with Dr. Rosa via tiger text; Recommended initiation of Depakote 250 mg nightly starting this evening. P.o. is preferred but can do IV if patient unable to swallow medications. LFTs reviewed last drawn 09/09; no transaminitis identified. Will order CMP for 09/16. Advance diet as tolerate Hypokalemia: serum potassium 3.4 on 09/12; (replaced with K rider x2 on 09/12); Serum potassium 3.4 today; add supplement to IV fluids Trend labs in AM T2DM: a1c 7.0, will d/c insulin ss as pt hypoglycemic due to poor intake hypoglycemia has improved; IVF adjusted to D5NS with 20 kcl replacement x2 bags Random a.m. cortisol was normal Trend labs in AM BIGG: RESOLVED on admission Cr 1.54, now down to 0.87 Pt was having hypoglycemic episodes and fluids was changed to D10; discontinued Glucose level 125 today; switched to D5 NSS with 20 KCl Trend labs in AM HLD: chronic, stable continue zetia Endometrial hypodensity: --CT abd/pelvis: Hypodense collection is noted within the endometrial cavity with suspicious enhancing soft tissue. Clinical correlation/ultrasound pelvis is suggested for better evaluation. will need outpt pelvic/TV US for further f/u Disposition: DVT ppx: SQ heparin Code Status: FULL CODE PCP: Dr. Ribera from [place], [place] Dispo: admitted to medical, not yet medically stable for discharge given current psychiatric state; patient family refuses to return to the [facility] upon medical stability. Likely could benefit from inpatient [facility] psych. Likely patient will be medically optimized here and discharged home. Patient requesting updates from providers. Mr. Nguyễn Ricks, contact #[phone]. I spent a total of 56 minutes coordinating, documenting and providing care for this patient excluding time spent in the performance of separately billed services or time spent by another provider/QHP. Admission and Anticipated Discharge Date Admission Date: September 11, 2024 Supervising Physician Co-Signing Physician Notes I have reviewed the advanced practitioner's documentation, and I agree with, and take responsibility for the plan of care Subjective Patient lying in her hospital bed in no apparent distress. Eyes remain closed and little interaction however she did open her eyes and squeeze her hands on to verbal command/stimuli. Unreliable for further ROS Pt son at bedside in the early afternoon; provided update at bedside EEG continues to be pending; touched base with Psych via [employer] Discussed with psych via [employer] text who agrees with patient's improvement and decreased catatonic state. See below for further details regarding POC. Disposition in bold below. Review of Systems Review of Systems: Unreliable ROS due to cognitive impairment/altered consciousness. Throughout the day her interaction improved; she was able to state her and NAVEEN name and answer simple questions where this AM she was less focal. Denies MUÑIZ, dizziness, chest pain, SOB. Physical Exam Physical Exam: Neuro: AAOx4, PERRLA, no aphagia, memory changes, CNII-XII grossly intact HEENT: head normocephalic, moist mucus membranes CV: S1/S2, (-) M/G/R, (-) edema, cap refill < 3 seconds Resp: Lungs CTA in all javed. On RA GI: Abdomen S/NT/ND, Ax4 bowel sounds, (-) CVA tenderness Musculoskeletal: 5/5 B/L UE strength, 5/5 B/L LE strength. No gait disturbance Skin: (-) rashes , (-) erythema. Psych: euthymic mood Results & Data Results & Data Vital Signs (Past 12 Hours) Vital Signs Temp Pulse Resp BP BP Pulse Ox O2 Del Method 09/13/24 07:18 36.4 C L 70 14 130/81 96 Room Air 09/12/24 21:10 36.9 C 77 14 153/83 H 98 Room Air Laboratory Results [facility] 09/13/24 06:31 Sodium 135 L Potassium 3.4 L Chloride 105 Carbon Dioxide 24 BUN 7 Creatinine 0.87 Glucose 110 H Calcium 8.5 L Cardiac Enzymes 09/13/24 Range/Units 06:31 Total Creatine Kinase 216 H (26-192) U/L
[2024-09-13] MEDS: D5W AND NSS 1,000 ML IV SCH (09:35)
[2024-09-13] MEDS: D5NSS + 20MEQ KCL 20 MEQ/1,000 ML BAG IV SCH (10:32)
[2024-09-13] MEDS: ACETAMINOPHEN 325 MG TAB PO PRN (11:35)
--- NOTE | 2024-09-13 13:28 | Psychiatric Progress Note ---
Date of Service September 13, 2024 Impression / Recommendations Impression 69 y/o F h/o hypertension, hyperlipidemia, DM 2 on Ozempic, schizoaffective disorder, bipolar type, tremors, glaucoma, past tobacco abuse who presents from outside psychiatric facility ([facility]) with recurrent falls. Psychiatry consulted for evaluation. Concern for a delirious renu and catatonia (staring spells, posturing, possible stereotypy) secondary to a manic episode. History of a bipolar condition with past manic episode and stabilization on antipsychotic with stability for years. Concern for recent paranoia, psychosis, decreased need for sleep, psychomotor agitation, mood lability, confusion in the context of medication non-adherence. Given long history of antipsychotic use there is concern for autometabolism leading to medication failure and may have been a factor in renu recurrence. Considered neuroleptic malignant syndrome however unlikely. Possible withdrawal from amantadine. Per collateral, on recent hospitalization she responded well to Lorazepam challenge and presented improvement in mental status. Her ziprasidone was restarted with improvement in mood and function and then later decompensated with worsening confusion and recurrent falls. Unclear if lorazepam was tapered off and may have been d/c abruptly during hospital transfer to outside psychiatric facility. Labs and imaging reviewed: CTH with microvascular changes, no active bleeding; Cr 1.37 and trending down, A1C of 7.0, CBC unremarkable, CK 535 and trending up. Would recommend scheduled Lorazepam and assess for improvements in orientation, affect, and movements. Plan to reintroduce antipsychotic carefully as D2 blockade from the medication may worsen catatonia. Concern for on-going psychomotor agitation. Recommend to restart Amantadine as it can cause withdrawal effects with abrupt discontinuation (similar symptom profile during withdrawal, pt has been on 200mg over a year and recently increased to 300mg). Psychiatry service to follow. Consider bedside sitter if patient presents erratic behaviors. A: Today patient is more lucid and oriented. Able to engage in simple conversation. Dysarthria resolving. CK trending down. Vitals have been stable. BIGG resolved. No notable symptoms of catatonia identified. Not seen responding to internal stimuli on exam. No rigidity on exam. Continues to have waxing and waning consciousness. Plan to initiate mood stabilizer. Considering depakote given efficacy for treating bipolar renu, sleep. Will recommend low dose to limit anticholinergic s/e when combined with amantadine. Overall, I spent a total of 40 minutes with this case including review of chart records, nursing report, review of lab work, direct evaluation of the patient at bedside, counseling the patient, discussion of the patient with the hospitalist provider, discussion with the psychiatric liaison during clinical rounds, gathering collateral from family and documentation in the electronic health record. (1) Renu: (2) Unspecified psychosis not due to a substance or known physiological condition: (3) Delirium: (4) Falls: (5) Catatonia: (6) Schizoaffective disorder, bipolar type: (7) Medication withdrawal: Plan 09/13/24 Continue Lorazepam, Amantadine CK stable now, no need for daily blood work Initiate Depakote 250mg in the evening (PO preferred, if pt unable can do IV infusion over 8-12 hours) 09/12/24 Continue Lorazepam, Amantadine 09/11/24 Lorazepam 1mg QAM, Q2pm IV/IM Lorazepam 2mg QHS IV/IM Continue Amantadine 100mg BID Repeat CK 09/10/24 Lorazepam 1mg TID IV/IM Restart Amantadine at 100mg BID Hold antipsychotics if possible Do not restart home bupropion Repeat CK given psychomotor agitation Encourage hydration, follow renal function Psychiatry service to follow daily Interval History Identifying Information 69 y/o F h/o hypertension, hyperlipidemia, DM 2 on Ozempic, schizoaffective disorder, bipolar type, tremors, glaucoma, past tobacco abuse who presents from outside psychiatric facility ([facility]) with recurrent falls. Psychiatry consulted for evaluation. Chief Complaint AMS Subjective Subjective on interview patient is alert and oriented to self, this physician, , hospital. Her voice is more clear and able to engage in simple conversation. Confused on why she is in the hospital and the events that took place over the last week. Attempted to explain her situation and history of events however patient's consciousness is waxing and waning. Reports bilateral leg weakness and discomfort. No other concerns reported. Asking where her dentures are and requesting denture cream. Physical Exam Mental Examination Appearance: Disheveled Eye Contact: Sporadic Contact Motor Behavior: Unremarkable Speech: Soft, Slurred and Poverty of Speech Affect: Anxious Thought Process: Disoriented and Linear (waxing and wanng) Thought Content: Disorganized Hallucinations: None Insight: Poor Judgement: Poor Vital Signs (Past 24 Hours) Last Vital Signs Temp 36.4 C L 09/13/24 07:18 Pulse 70 09/13/24 07:18 Resp 14 09/13/24 07:18 BP 130/81 09/13/24 07:18 Pulse Ox 96 09/13/24 07:18 O2 Del Method Room Air 09/13/24 07:18 O2 Flow Rate 8 09/10/24 00:41 Results & Data ([facility]) Laboratory Results Laboratory Results - last 24 hr 09/12/24 09/12/24 09/13/24 16:47 21:09 01:02 Sodium Potassium Chloride Carbon Dioxide Anion Gap BUN Creatinine Est Cr Clr Drug Dosing eGFR BUN/Creatinine Ratio Glucose POC Glucose 87 100 H 115 H Calcium Total Creatine Kinase 09/13/24 09/13/24 09/13/24 04:31 06:31 07:41 Sodium 135 L Potassium 3.4 L Chloride 105 Carbon Dioxide 24 Anion Gap 6 BUN 7 Creatinine 0.87 Est Cr Clr Drug Dosing 58.2 eGFR 72.53 BUN/Creatinine Ratio 8.0 L Glucose 110 H POC Glucose 125 H 103 H Calcium 8.5 L Total Creatine Kinase 216 H 09/13/24 11:35 Sodium Potassium Chloride Carbon Dioxide Anion Gap BUN Creatinine Est Cr Clr Drug Dosing eGFR BUN/Creatinine Ratio Glucose POC Glucose 122 H Calcium Total Creatine Kinase Current Inpatient Medications Current Inpatient Medications: Current Inpatient Medications Acetaminophen (Acetaminophen 325 Mg Tab) 650 mg PO QID PRN PRN Reason: pain/fever Stop: 10/10/24 04:39 Last Admin: 09/13/24 11:35 Dose: 650 mg Amantadine HCl (Amantadine Hcl 100 Mg Capsule) 100 mg PO BID SAL Stop: 10/10/24 20:59 Last Admin: 09/13/24 09:44 Dose: 100 mg Aspirin (Aspirin 81 Mg Ectab) 81 mg PO DAILY SAL Stop: 10/10/24 08:59 Last Admin: 09/13/24 09:44 Dose: 81 mg Dextrose (Dextrose 50% 50 Ml Syringe) 25 - 50 ml IV UD PRN; Protocol PRN Reason: Hypoglycemia Protocol Stop: 10/10/24 06:33 Last Admin: 09/11/24 08:33 Dose: 50 ml Dorzolamide/Timolol (Dorzolamide/Timolol 22.3/6.8mg/Ml 10 Ml Btl) 1 drops OP BID SAL Stop: 10/10/24 08:59 Last Admin: 09/13/24 09:45 Dose: 1 drops Ezetimibe (Ezetimibe 10 Mg Tab) 10 mg PO DAILY SAL Stop: 10/10/24 08:59 Last Admin: 09/13/24 09:44 Dose: 10 mg Glucagon (Glucagon For Inj 1 Mg Vial) 1 mg SQ UD PRN; Protocol PRN Reason: Hypoglycemia Protocol Stop: 10/10/24 06:33 Glucose (Glucose 40% Gel 15 Gm Tube) 15 - 30 gm PO UD PRN; Protocol PRN Reason: Hypoglycemia Protocol Stop: 10/10/24 06:33 Glucose (Glucose 10 Tab/Tube) 4 - 8 tab PO UD PRN; Protocol PRN Reason: Hypoglycemia Protocol Stop: 10/10/24 06:33 Heparin Sodium (Porcine) (Heparin Sod 5,000 Unit/0.5 Ml Vial) 5,000 units SQ Q8 SAL Stop: 10/10/24 05:59 Last Admin: 09/13/24 06:28 Dose: 5,000 units Promethazine HCl (Phenergan) 6.25 mg in 50.25 mls @ 201 mls/hr IV Q6H PRN PRN Reason: Nausea And Vomiting Stop: 10/10/24 04:39 Thiamine HCl 200 mg/ Sodium (Chloride) 52 mls @ 210 mls/hr IV Q8H SAL Stop: 10/11/24 11:59 Last Infusion: 09/13/24 12:02 Dose: Infused Potassium Chloride/Dextrose/Sod Cl (D5nss + 20meq Kcl) 20 meq in 1,000 mls @ 125 mls/hr IV .Q8H SAL Stop: 09/14/24 00:29 Last Admin: 09/13/24 10:32 Dose: 125 mls/hr Latanoprost (Latanoprost 0.005% Op Soln 2.5 Ml Btl) 1 drops OP HS SAL Stop: 10/10/24 20:59 Last Admin: 09/12/24 21:51 Dose: Not Given Lorazepam (Lorazepam 2 Mg/1 Ml Vial) 1 mg IV [id number] SAL Stop: 10/12/24 06:59 Last Admin: 09/13/24 06:29 Dose: 1 mg Lorazepam (Lorazepam 2 Mg/1 Ml Vial) 2 mg IV HS SAL Stop: 10/11/24 20:59 Last Admin: 09/12/24 20:13 Dose: 2 mg Miconazole Nitrate (Miconazole Nitrate Powder 85 Gm) 1 appln EXT PRN PRN PRN Reason: Affected Skin Folds Stop: 10/11/24 07:03 Last Admin: 09/11/24 13:43 Dose: 1 appln Miscellaneous (Carbohydrates For Hypoglycemia ) 15 - 30 gm PO UD PRN PRN Reason: Hypoglycemia Protocol Stop: 10/10/24 06:33 Mupirocin (Mupirocin 2% Oint 22 Gm Tube) 1 appln EXT BID SAL Stop: 09/17/24 08:59 Last Admin: 09/13/24 09:46 Dose: 1 appln
[2024-09-13] MEDS: DIVALPROEX EXTENDED RELEASE 250 MG TABCR PO SCH (20:41)
--- NOTE | 2024-09-14 07:14 | Hospitalist Progress Note ---
Date of Service September 14, 2024 Assessment & Plan (1) Encephalopathy: Plan: This is a 69 yr old F who has a significant PMH of HTN, HLD, T2DM, bipolar disorder, schizoaffective disorder, chronic tremors, glaucoma, past tobacco use who presented to ED on 09/10 2/2 disorientation. Pt presented from the [facility] in psych facility. Shes resides in [place], [place]. Encephalopathy IMPROVING Possible Delirious Juan F and Catatonia in setting of manic episode/Bipolar Likely secondary to neuropsychotropic medication adverse effect/interaction, hx bipolar disorder, schizoaffective disorder Currently on lorazepam challenge with scheduled IV ativan and amantadine 09/12 Psych recommended to increase lorazepam at HS to 2mg CK trending down 500--> 216-->today 129 EEG results remain pending; suspect formal read by tomorrow 09/15. Depakote started last night; remains p.o. LFTs reviewed no transaminitis identified. CMP ordered for 09/16 Advance diet as tolerated. Hypokalemia: RESOLVED serum potassium 3.4--> replaced, today 3.7 Trend labs in AM T2DM: a1c 7.0, will d/c insulin ss as pt hypoglycemic due to poor intake hypoglycemia has improved; IVF adjusted to D5NS with 20 kcl replacement x2 bags; completed; know additional IV fluids today given electrolyte normalization and resumed p.o. intake. Random a.m. cortisol was normal Trend labs in AM BIGG: RESOLVED on admission Cr 1.54, now down to 0.87 Pt was having hypoglycemic episodes and fluids was changed to D10; discontinued Glucose level 125 today; switched to D5 NSS with 20 KCl Trend labs in AM HLD: chronic, stable continue zetia Endometrial hypodensity: --CT abd/pelvis: Hypodense collection is noted within the endometrial cavity with suspicious enhancing soft tissue. Clinical correlation/ultrasound pelvis is suggested for better evaluation. will need outpt pelvic/TV US for further f/u Disposition: DVT ppx: SQ heparin Code Status: FULL CODE PCP: Dr. Ribera from [place], [place] Dispo: admitted to medical, not yet medically stable for discharge given current psychiatric state; patient family refuses to return to the [facility] upon medical stability. Likely could benefit from inpatient [facility]. Likely patient will be medically optimized here and discharged home in the coming days. Patient requesting updates from providers. Mr. Nguyễn Ricks, contact #[phone] I spent a total of 58 minutes coordinating, documenting and providing care for this patient excluding time spent in the performance of separately billed services or time spent by another provider/QHP. Admission and Anticipated Discharge Date Admission Date: September 11, 2024 Supervising Physician Co-Signing Physician Notes 09/14/2024 The patient was seen and examined in medical floor She has been feeling much better and Trying to converse normally Has been moving limbs but has extreme weakness and tiredness On examination Lying in bed without any apparent distress Remains hemodynamically stable Chest was clear to auscultate bilaterally with decreased breath sounds both sides HeartS1-S2, regular Abdomenbenign Extremitiestrace edema bilaterally CNSminimal communication with difficulty in communication. Remains very weak and lethargic Her labs and medications reviewed Metabolic encephalopathy with delirium with history of juan f and catatonia in the setting of manic episode/bipolar disorder Appreciate psychiatric evaluation and recommendation Improving gradually Agree with assessment and plan as outlined above by Mayra ROWLEY and take the full responsibility of care in the hospital Total time taken in documenting all of this was [address] Jack Eddy Subjective Patient lying in her hospital bed in no apparent distress. Significantly improved mental status compared to yesterday. At the end of the day, yesterday patient's was at bedside and her mental status was showing improvement. Today she is AO x 3 and able to answer all questions appropriately; She is still tired in the morning. EEG continues to be pending; anticipate formal results to be posted tomorrow 09/15 Psych started her on p.o. Depakote yesterday. Patient denies chest pain, dizziness, shortness of breath. She does report RLQ pain; she is starting to eat and I suspect this is from her bowels starting to move more. Will follow. No additional imaging ordered at this time. s/w pt , Nguyễn, on the phone at [phone] to provide a medical update who is pleased with her improvement. Pt daughter to visit patient today. See below for further details regarding POC. Review of Systems Review of Systems: Neuro: (-) Falls, trauma, slurred speech HEENT: (-) MUÑIZ, dizziness, dysphagia, visual or auditory changes CV: (-) CP, palpitations, swelling Resp: (-) SOB GI: (-) appetite changes, N/V/D, bowel changes (+) RLQ pain : (-) urinary changes Skin: (-) rashes Psych: (-) anxiety, depression Physical Exam Physical Exam: Neuro: AAOx4, PERRLA, no aphagia, memory changes, CNII-XII grossly intact HEENT: head normocephalic, moist mucus membranes CV: S1/S2, (-) M/G/R, (-) edema, cap refill < 3 seconds Resp: Lungs CTA in all javed. On RA GI: Abdomen S/NT/ND, Ax4 bowel sounds, (-) CVA tenderness (+) tenderness RLQ Musculoskeletal: 5/5 B/L UE strength, 5/5 B/L LE strength. No gait disturbance; has not been out of bed yet today. Skin: (-) rashes , (-) erythema. Psych: Flat affect Results & Data Results & Data Vital Signs (Past 12 Hours) Vital Signs Temp Pulse Resp BP Pulse Ox O2 Del Method 09/13/24 19:49 36.2 C L 74 16 156/78 H 99 Room Air Laboratory Results Short CBC 09/14/24 Range/Units 07:22 WBC 5.65 (4.8-10.8) K/ul Hgb 11.4 L (12.0-16.0) g/dl Hct 36.1 L (37.0-47.0) % Plt Count 235 (130-400) K/uL BMP 09/14/24 07:22 Sodium 139 Potassium 3.7 Chloride 112 H Carbon Dioxide 23 BUN 5 L Creatinine 0.87 Glucose 136 H Calcium 8.6 Cardiac Enzymes 09/14/24 Range/Units 07:22 Total Creatine Kinase 129 (26-192) U/L
[2024-09-14 07:38] LABS: Hematocrit (blood only) 36.1 % (37.0-47.0); Hemoglobin 11.4 g/dl (12.0-16.0); Mean Corpuscular Hemoglobin 27.7 pg (25.0-34.0); Mean Corpuscular Hgb Conc 31.6 g/dL (32.0-36.0); Mean Corpuscular Volume 87.6 fL (80.0-100.0); Mean Platelet Volume 9.6 fL (9.4-12.4); Platelet Count 235 K/uL (130-400); RDW Coefficient of Variation 14.9 % (11.5-14.5); Red Blood Count 4.12 M/uL (4.20-5.40); White Blood Count 5.65 K/ul (4.8-10.8)
[2024-09-14 07:52] LABS: BUN Creatinine Ratio 5.7 (10-20); Calcium 8.6 mg/dl (8.6-10.3); Creatinine Clr Calc Pharmacy 58.2 ml/min; Potassium 3.7 mmol/L (3.5-5.1)
[2024-09-14] MEDS: CALCIUM CARBONATE 500 MG CHEWABLE TAB PO PRN (08:42)
--- NOTE | 2024-09-14 13:57 | Psychiatric Progress Note ---
Date of Service September 14, 2024 Impression / Recommendations Impression 69 y/o F h/o hypertension, hyperlipidemia, DM 2 on Ozempic, schizoaffective disorder, bipolar type, tremors, glaucoma, past tobacco abuse who presents from outside psychiatric facility ([facility]) with recurrent falls. Psychiatry consulted for evaluation. Concern for a delirious renu and catatonia (staring spells, posturing, possible stereotypy) secondary to a manic episode. History of a bipolar condition with past manic episode and stabilization on antipsychotic with stability for years. Concern for recent paranoia, psychosis, decreased need for sleep, psychomotor agitation, mood lability, confusion in the context of medication non-adherence. Given long history of antipsychotic use there is concern for autometabolism leading to medication failure and may have been a factor in renu recurrence. Considered neuroleptic malignant syndrome however unlikely. Possible withdrawal from amantadine. Per collateral, on recent hospitalization she responded well to Lorazepam challenge and presented improvement in mental status. Her ziprasidone was restarted with improvement in mood and function and then later decompensated with worsening confusion and recurrent falls. Unclear if lorazepam was tapered off and may have been d/c abruptly during hospital transfer to outside psychiatric facility. Labs and imaging reviewed: CTH with microvascular changes, no active bleeding; Cr 1.37 and trending down, A1C of 7.0, CBC unremarkable, CK 535 and trending up. Would recommend scheduled Lorazepam and assess for improvements in orientation, affect, and movements. Plan to reintroduce antipsychotic carefully as D2 blockade from the medication may worsen catatonia. Concern for on-going psychomotor agitation. Recommend to restart Amantadine as it can cause withdrawal effects with abrupt discontinuation (similar symptom profile during withdrawal, pt has been on 200mg over a year and recently increased to 300mg). Psychiatry service to follow. Consider bedside sitter if patient presents erratic behaviors. A: Today patient is lucid and oriented. Able to engage in conversation about her care. Less waxing/waning. Clear speech. Not seen responding to internal stimuli. She endorsed mild AH at night. No rigidity on exam. Poor sleep overnight and disrupted. Collateral from daughter indicates pt has struggled with isolation and depression over the past decade; advised they will need regular outpatient f/u post discharge for medication adjustments. Given concern for depakote contributing to anticholinergic burden, risk of falls in elderly pt with severe OA will recommend to d/c. Plan to switch to oral lorazepam and initiate Aripiprazole today for mood stabilization. Overall, I spent a total of 60 minutes with this case including review of chart records, nursing report, review of lab work, direct evaluation of the patient at bedside, counseling the patient, discussion of the patient with the hospitalist provider, discussion with the psychiatric liaison during clinical rounds, gathering collateral from family and documentation in the electronic health record. (1) Renu: (2) Unspecified psychosis not due to a substance or known physiological condition: (3) Delirium: (4) Falls: (5) Catatonia: (6) Schizoaffective disorder, bipolar type: (7) Medication withdrawal: Plan 09/14/24 D/c Depakote Transition to oral lorazepam Start Aripiprazole 5mg HS 09/13/24 Continue Lorazepam, Amantadine CK stable now, no need for daily blood work Initiate Depakote 250mg in the evening (PO preferred, if pt unable can do IV infusion over 8-12 hours) 09/12/24 Continue Lorazepam, Amantadine 09/11/24 Lorazepam 1mg QAM, Q2pm IV/IM Lorazepam 2mg QHS IV/IM Continue Amantadine 100mg BID Repeat CK 09/10/24 Lorazepam 1mg TID IV/IM Restart Amantadine at 100mg BID Hold antipsychotics if possible Do not restart home bupropion Repeat CK given psychomotor agitation Encourage hydration, follow renal function Psychiatry service to follow daily Interval History Identifying Information 69 y/o F h/o hypertension, hyperlipidemia, DM 2 on Ozempic, schizoaffective diso rder, bipolar type, tremors, glaucoma, past tobacco abuse who presents from outside psychiatric facility ([facility]) with recurrent falls. Psychiatry consulted for evaluation. Chief Complaint AMS, catatonia Subjective Subjective Overnight patient slept 2 to 3 hours and was disrupted. On interview the patient is lucid and oriented to situation. Complains of left leg pain and loose stools. She reports resolution of visual hallucinations and she recalls experiencing them when she first came to the hospital. Complains of auditory hallucinations at night where she hears people mumbling. Reports that she feels better after Ativan and is a little bit more confused before. When asked about what led to falls in the [facility] she reports that she felt that the devil was pushing her. Denies experiencing any movements or sites of the double now. She does not member our conversation yesterday when her gludke-zy-cpu and were present. Patient was later seen in the afternoon and continues to present a stable mental status. Physical Exam Mental Examination Appearance: Disheveled Eye Contact: Sporadic Contact Motor Behavior: Unremarkable Speech: Soft, Slurred and Poverty of Speech Affect: Anxious Thought Process: Disoriented and Linear (waxing and wanng) Thought Content: Disorganized Hallucinations: None Insight: Poor Judgement: Poor Vital Signs (Past 24 Hours) Last Vital Signs Temp 36.5 C 09/14/24 07:52 Pulse 75 09/14/24 07:52 Resp 18 09/14/24 07:52 BP 150/84 H 09/14/24 07:52 Pulse Ox 97 09/14/24 07:52 O2 Del Method Room Air 09/14/24 07:52 O2 Flow Rate 8 09/10/24 00:41 Results & Data ([facility]) Laboratory Results Laboratory Results - last 24 hr 09/13/24 09/13/24 09/13/24 16:29 19:52 23:44 WBC RBC Hgb Hct MCV MCH MCHC RDW Std Deviation RDW Coeff of Onesimo Plt Count MPV Sodium Potassium Chloride Carbon Dioxide Anion Gap BUN Creatinine Est Cr Clr Drug Dosing eGFR BUN/Creatinine Ratio Glucose POC Glucose 126 H 97 106 H Calcium Total Creatine Kinase 09/14/24 09/14/24 09/14/24 03:17 07:22 07:45 WBC 5.65 RBC 4.12 L Hgb 11.4 L Hct 36.1 L MCV 87.6 MCH 27.7 MCHC 31.6 L RDW Std Deviation 48.0 H RDW Coeff of Onesimo 14.9 H Plt Count 235 MPV 9.6 Sodium 139 Potassium 3.7 Chloride 112 H Carbon Dioxide 23 Anion Gap 4 BUN 5 L Creatinine 0.87 Est Cr Clr Drug Dosing 58.2 eGFR 72.53 BUN/Creatinine Ratio 5.7 L Glucose 136 H POC Glucose 92 124 H Calcium 8.6 Total Creatine Kinase 129 09/14/24 11:17 WBC RBC Hgb Hct MCV MCH MCHC RDW Std Deviation RDW Coeff of Onesimo Plt Count MPV Sodium Potassium Chloride Carbon Dioxide Anion Gap BUN Creatinine Est Cr Clr Drug Dosing eGFR BUN/Creatinine Ratio Glucose POC Glucose 92 Calcium Total Creatine Kinase Current Inpatient Medications Current Inpatient Medications: Current Inpatient Medications Acetaminophen (Acetaminophen 325 Mg Tab) 650 mg PO QID PRN PRN Reason: pain/fever Stop: 10/10/24 04:39 Last Admin: 09/14/24 08:42 Dose: 650 mg Amantadine HCl (Amantadine Hcl 100 Mg Capsule) 100 mg PO BID SAL Stop: 10/10/24 20:59 Last Admin: 09/14/24 08:43 Dose: 100 mg Aspirin (Aspirin 81 Mg Ectab) 81 mg PO DAILY SAL Stop: 10/10/24 08:59 Last Admin: 09/14/24 08:43 Dose: 81 mg Calcium Carbonate (Calcium Carbonate 500 Mg Chewable Tab) 500 mg PO Q8H PRN PRN Reason: Indigestion Stop: 10/14/24 08:05 Last Admin: 09/14/24 08:42 Dose: 500 mg Dextrose (Dextrose 50% 50 Ml Syringe) 25 - 50 ml IV UD PRN; Protocol PRN Reason: Hypoglycemia Protocol Stop: 10/10/24 06:33 Last Admin: 09/11/24 08:33 Dose: 50 ml Divalproex Sodium (Divalproex Extended Release 250 Mg Tabcr) 250 mg PO HS SAL Stop: 10/13/24 20:59 Last Admin: 09/13/24 20:41 Dose: 250 mg Dorzolamide/Timolol (Dorzolamide/Timolol 22.3/6.8mg/Ml 10 Ml Btl) 1 drops OP BID SAL Stop: 10/10/24 08:59 Last Admin: 09/14/24 08:46 Dose: 1 drops Ezetimibe (Ezetimibe 10 Mg Tab) 10 mg PO DAILY SAL Stop: 10/10/24 08:59 Last Admin: 09/14/24 08:43 Dose: 10 mg Glucagon (Glucagon For Inj 1 Mg Vial) 1 mg SQ UD PRN; Protocol PRN Reason: Hypoglycemia Protocol Stop: 10/10/24 06:33 Glucose (Glucose 40% Gel 15 Gm Tube) 15 - 30 gm PO UD PRN; Protocol PRN Reason: Hypoglycemia Protocol Stop: 10/10/24 06:33 Glucose (Glucose 10 Tab/Tube) 4 - 8 tab PO UD PRN; Protocol PRN Reason: Hypoglycemia Protocol Stop: 10/10/24 06:33 Heparin Sodium (Porcine) (Heparin Sod 5,000 Unit/0.5 Ml Vial) 5,000 units SQ Q8 SAL Stop: 10/10/24 05:59 Last Admin: 09/14/24 13:50 Dose: 5,000 units Promethazine HCl (Phenergan) 6.25 mg in 50.25 mls @ 201 mls/hr IV Q6H PRN PRN Reason: Nausea And Vomiting Stop: 10/10/24 04:39 Thiamine HCl 200 mg/ Sodium (Chloride) 52 mls @ 210 mls/hr IV Q12H [facility] Stop: 10/14/24 16:59 Latanoprost (Latanoprost 0.005% Op Soln 2.5 Ml Btl) 1 drops OP HS [facility] Stop: 10/10/24 20:59 Last Admin: 09/13/24 20:43 Dose: 1 drops Lorazepam (Lorazepam 2 Mg/1 Ml Vial) 1 mg IV [id number] [facility] Stop: 10/12/24 06:59 Last Admin: 09/14/24 13:50 Dose: 1 mg Lorazepam (Lorazepam 2 Mg/1 Ml Vial) 2 mg IV HS [facility] Stop: 10/11/24 20:59 Last Admin: 09/13/24 20:51 Dose: 2 mg Miconazole Nitrate (Miconazole Nitrate Powder 85 Gm) 1 appln EXT PRN PRN PRN Reason: Affected Skin Folds Stop: 10/11/24 07:03 Last Admin: 09/11/24 13:43 Dose: 1 appln Miscellaneous (Carbohydrates For Hypoglycemia ) 15 - 30 gm PO UD PRN PRN Reason: Hypoglycemia Protocol Stop: 10/10/24 06:33 Mupirocin (Mupirocin 2% Oint 22 Gm Tube) 1 appln EXT BID SAL Stop: 09/17/24 08:59 Last Admin: 09/14/24 08:47 Dose: 1 appln
[2024-09-14] MEDS: THIAMINE HCL 200 MG in SODIUM CHLORIDE 0.9% 50 ML IV SCH (17:04)
[2024-09-14] MEDS: LORazepam 1 MG TAB PO SCH (20:18)
[2024-09-14] MEDS: ARIPiprazole 5 MG TAB PO SCH (20:58)
[2024-09-15] MEDS: ALUMINUM/MAGNESIUM/SIMETH (MAALOX MAX) 30 ML UDC PO STA (00:13)
[2024-09-15 06:06] LABS: Hematocrit (blood only) 35.9 % (37.0-47.0); Hemoglobin 11.6 g/dl (12.0-16.0); Mean Corpuscular Hgb Conc 32.3 g/dL (32.0-36.0); Mean Corpuscular Volume 86.7 fL (80.0-100.0); Mean Platelet Volume 9.6 fL (9.4-12.4); Platelet Count 237 K/uL (130-400); RDW Coefficient of Variation 15.1 % (11.5-14.5); RDW Standard Deviation 47.9 fL (36.4-46.3); Red Blood Count 4.14 M/uL (4.20-5.40); White Blood Count 5.62 K/ul (4.8-10.8)
[2024-09-15 06:25] LABS: BUN Creatinine Ratio 7.5 (10-20); Calcium 9.4 mg/dl (8.6-10.3); Creatinine Clr Calc Pharmacy 54.4 ml/min; Potassium 3.8 mmol/L (3.5-5.1)
[2024-09-15] MEDS: LORazepam 1 MG TAB PO SCH (06:34)
--- NOTE | 2024-09-15 07:14 | Hospitalist Progress Note ---
Date of Service September 15, 2024 Assessment & Plan (1) Encephalopathy: Plan: This is a 69 yr old F who has a significant PMH of HTN, HLD, T2DM, bipolar disorder, schizoaffective disorder, chronic tremors, glaucoma, past tobacco use who presented to ED on 09/10 2/2 disorientation. Pt presented from the [facility] psych facility. Shes resides in [place], [place]. Encephalopathy IMPROVING Possible Delirious Juan F and Catatonia in setting of manic episode/Bipolar Likely secondary to neuropsychotropic medication adverse effect/interaction, hx bipolar disorder, schizoaffective disorder Psych adjusting medications; discussed and made following adjustments: * Lorazepam 0.5 mg PO QAM * Lorazepam 0.5 mg po @ 1400 * Lorazepam 1.5 mg PO QHS * Lorazepam 0.5 mg PO BID PRN (anxiety) * Increase Abilify to 10 mg QHS * Trazadone 25 mg PO QHS EEG results remain pending CMP ordered for 09/16 Advance diet as tolerated PT/OT Per Psych anticipate inpatient through 09/18 Hypokalemia: RESOLVED serum potassium 3.4--> replaced, today 3.8 Trend labs in AM T2DM: a1c 7.0, will d/c insulin ss as pt hypoglycemic due to poor intake hypoglycemia has improved; no additional IVF Random a.m. cortisol was normal Trend labs in AM BIGG: RESOLVED on admission Cr 1.54, now down to 0.93 Pt was having hypoglycemic episodes and fluids was changed to D10; discontinued Trend labs in AM HLD: chronic, stable continue zetia Endometrial hypodensity: --CT abd/pelvis: Hypodense collection is noted within the endometrial cavity with suspicious enhancing soft tissue. Clinical correlation/ultrasound pelvis is suggested for better evaluation. will need outpt pelvic/TV US for further f/u Disposition: DVT ppx: SQ heparin Code Status: FULL CODE PCP: Dr. Ribera from [place], [place] Dispo: admitted to medical, not yet medically stable for discharge given current psychiatric state; patient family refuses to return to the [facility] upon medical stability. Likely could benefit from inpatient [facility] psych. Likely patient will be medically optimized here and discharged home 09/17 or 09/18 pending PT/OT and Psych Patient requesting updates from providers. Mr. Nguyễn Ricks, contact #[phone] I spent a total of 56 minutes coordinating, documenting and providing care for this patient excluding time spent in the performance of separately billed services or time spent by another provider/QHP. Admission and Anticipated Discharge Date Admission Date: September 11, 2024 Supervising Physician Co-Signing Physician Notes 09/14/2024 The patient was seen and examined in medical floor She has been feeling much better and Trying to converse normally Has been moving limbs but has extreme weakness and tiredness 09/15/2024 The patient was seen and examined in medical floor She has been much better today and has been having good conversation Denies any significant symptoms and awaiting PT OT evaluation On examination Lying in bed without any apparent distress Remains hemodynamically stable Chest was clear to auscultate bilaterally with decreased breath sounds both sides HeartS1-S2, regular Abdomenbenign Extremitiestrace edema bilaterally CNSminimal communication with difficulty in communication. Remains very weak and lethargic Her labs and medications reviewed Metabolic encephalopathy with delirium with history of juan f and catatonia in the setting of manic episode/bipolar disorder Appreciate psychiatric evaluation and recommendation Her medications have been adjusted as per the psychiatrist and seems to be medically stable Agree with assessment and plan as outlined above by Mayra ROWLEY and take the full responsibility of care in the hospital Total time taken in documenting all of this was [address] Jack Eddy Subjective Patient sitting in her hospital bed in no apparent distress; her mental status continues to improve each day. She is able to have full conversation, although slower to respond and answer. She denies CP, SOB, and dizziness. RLQ pain improved and is no longer present from yesterday. s/w Psych and made changes to medications as outlined below . s/w pt , Nguyễn, on the phone at [phone] to provide a medical update who is pleased with her improvement. Likely pt remain inpt until /sun; awaiting PT/OT to see pt See below for further details regarding POC. Review of Systems Review of Systems: Neuro: (-) Falls, trauma, slurred speech HEENT: (-) MUÑIZ, dizziness, dysphagia, visual or auditory changes CV: (-) CP, palpitations, swelling Resp: (-) SOB GI: (-) appetite changes, (-) abdominal pain, N/V/D, bowel changes : (-) urinary changes Skin: (-) rashes Psych: (-) anxiety, depression Physical Exam Physical Exam: Neuro: AAOx4, PERRLA, no aphagia, memory changes, CNII-XII grossly intact HEENT: head normocephalic, moist mucus membranes CV: S1/S2, (-) M/G/R, (-) edema, cap refill < 3 seconds Resp: Lungs CTA in all javed. On RA GI: Abdomen S/NT/ND, Ax4 bowel sounds, (-) CVA tenderness (+) tenderness RLQ Musculoskeletal: 5/5 B/L UE strength, 5/5 B/L LE strength. No gait disturbance; has not been out of bed yet today; awaiting PT/OT Skin: (-) rashes , (-) erythema. Psych: Flat affect Results & Data Results & Data Vital Signs (Past 12 Hours) Vital Signs Temp Pulse Resp BP Pulse Ox O2 Del Method 09/15/24 07:04 36.7 C 76 18 138/76 99 Room Air 09/14/24 20:00 Room Air Laboratory Results Short CBC 09/15/24 Range/Units 05:42 WBC 5.62 (4.8-10.8) K/ul Hgb 11.6 L (12.0-16.0) g/dl Hct 35.9 L (37.0-47.0) % Plt Count 237 (130-400) K/uL BMP 09/15/24 05:42 Sodium 138 Potassium 3.8 Chloride 107 Carbon Dioxide 27 BUN 7 Creatinine 0.93 Glucose 87 Calcium 9.4
[2024-09-15] MEDS ORDERED: LORazepam 0.5 MG TAB PO PRN (12:40)
[2024-09-15] MEDS: LORazepam 0.5 MG TAB PO SCH ×2 (14:48→21:45)
--- NOTE | 2024-09-15 15:33 | Psychiatric Progress Note ---
Date of Service September 15, 2024 Impression / Recommendations Impression 69 y/o F h/o hypertension, hyperlipidemia, DM 2 on Ozempic, schizoaffective disorder, bipolar type, tremors, glaucoma, past tobacco abuse who presents from outside psychiatric facility ([facility]) with recurrent falls. Psychiatry consulted for evaluation. Concern for a delirious renu and catatonia (rigidity, staring spells, posturing, possible stereotypy) secondary to a manic episode. History of a bipolar condition with past manic episode and stabilization on antipsychotic with stability for years. Concern for recent paranoia, psychosis, decreased need for sleep, psychomotor agitation, mood lability, confusion in the context of medication non-adherence. Given long history of antipsychotic use there is concern for autometabolism leading to medication failure in addition to change in tolerance and may have been a factor in renu recurrence. Considered neuroleptic malignant syndrome however unlikely. Possible withdrawal from amantadine. Per collateral, lorazepam was given initially with rapid improvement in mental status and was abruptly d/c once catatonia resolved. Her ziprasidone was restarted with improvement in mood and function and then later decompensated with worsening confusion and recurrent falls. A: Patient continues to improve in terms of mental status, memory, decision making. Tolerating transition to oral lorazepam well. Continues to have disturbed and minimal sleep. Concern for excess sedation from oral lorazepam. We will recommend to decrease lorazepam dosing, optimize her mood stabilizer dose, and initiate antihistamine sleep aid. Spoke to patient's son to update about care. Overall, I spent a total of 60 minutes with this case including review of chart records, nursing report, review of lab work, direct evaluation of the patient at bedside, counseling the patient, discussion of the patient with the hospitalist provider, discussion with the psychiatric liaison during clinical rounds, gathering collateral from family and documentation in the electronic health record. (1) Renu: (2) Unspecified psychosis not due to a substance or known physiological condition: (3) Delirium: (4) Falls: (5) Catatonia: (6) Schizoaffective disorder, bipolar type: (7) Medication withdrawal: Plan 09/15/2024: Decrease Lorazepam to 0.5mg QAM, 0.5mg @1400, 1.5mg HS Increase Aripiprazole to 10mg HS Start Trazodone 25mg HS Start Lorazepam 0.5mg BID PRN for anxiety 09/14/24 D/c Depakote Transition to oral lorazepam Start Aripiprazole 5mg HS 09/13/24 Continue Lorazepam, Amantadine CK stable now, no need for daily blood work Initiate Depakote 250mg in the evening (PO preferred, if pt unable can do IV infusion over 8-12 hours) 09/12/24 Continue Lorazepam, Amantadine 09/11/24 Lorazepam 1mg QAM, Q2pm IV/IM Lorazepam 2mg QHS IV/IM Continue Amantadine 100mg BID Repeat CK 09/10/24 Lorazepam 1mg TID IV/IM Restart Amantadine at 100mg BID Hold antipsychotics if possible Do not restart home bupropion Repeat CK given psychomotor agitation Encourage hydration, follow renal function Psychiatry service to follow daily Interval History Identifying Information 69 y/o F h/o hypertension, hyperlipidemia, DM 2 on Ozempic, schizoaffective disorder, bipolar type, tremors, glaucoma, past tobacco abuse who presents from outside psychiatric facility ([facility]) with recurrent falls. Psychiatry consulted for evaluation. Chief Complaint AMS, catatonia Subjective Subjective Patient slept 3 hours overnight and disrupted. On interview she reports having racing thoughts going through the events of what took place over the past few weeks. Denies having any auditory perceptual disturbances overnight. Reports that the Ativan has been helpful in making her feel less confused. Physical Exam Mental Examination Appearance: Disheveled Eye Contact: Maintains Eye Contact Motor Behavior: Unremarkable Speech: Soft Mood: Anxious Affect: Anxious and Constricted Thought Process: Linear (waxing and waning at times) Thought Content: Intact, Linear and Racing Hallucinations: None Insight: Fair Judgement: Fair Vital Signs (Past 24 Hours) Last Vital Signs Temp 36.6 C 09/15/24 14:23 Pulse 70 09/15/24 14:23 Resp 18 09/15/24 14:23 BP 138/83 09/15/24 14:23 Pulse Ox 99 09/15/24 14:23 O2 Del Method Room Air 09/15/24 14:23 O2 Flow Rate 8 09/10/24 00:41 Results & Data ([facility]) Laboratory Results Laboratory Results - last 24 hr 09/14/24 09/14/24 09/14/24 16:31 20:15 23:06 WBC RBC Hgb Hct MCV MCH MCHC RDW Std Deviation RDW Coeff of Onesimo Plt Count MPV Sodium Potassium Chloride Carbon Dioxide Anion Gap BUN Creatinine Est Cr Clr Drug Dosing eGFR BUN/Creatinine Ratio Glucose POC Glucose 110 H 91 84 Calcium 09/15/24 09/15/24 09/15/24 05:42 07:31 11:26 WBC 5.62 RBC 4.14 L Hgb 11.6 L Hct 35.9 L MCV 86.7 MCH 28.0 MCHC 32.3 RDW Std Deviation 47.9 H RDW Coeff of Onesimo 15.1 H Plt Count 237 MPV 9.6 Sodium 138 Potassium 3.8 Chloride 107 Carbon Dioxide 27 Anion Gap 4 BUN 7 Creatinine 0.93 Est Cr Clr Drug Dosing 54.4 eGFR 66.95 BUN/Creatinine Ratio 7.5 L Glucose 87 POC Glucose 84 97 Calcium 9.4 Current Inpatient Medications Current Inpatient Medications: Current Inpatient Medications Acetaminophen (Acetaminophen 325 Mg Tab) 650 mg PO QID PRN PRN Reason: pain/fever Stop: 10/10/24 04:39 Last Admin: 09/14/24 08:42 Dose: 650 mg Amantadine HCl (Amantadine Hcl 100 Mg Capsule) 100 mg PO BID [facility] Stop: 10/10/24 20:59 Last Admin: 09/15/24 08:07 Dose: 100 mg Aripiprazole (Aripiprazole 10 Mg Tab) 10 mg PO QPM [facility] Stop: 10/15/24 20:59 Aspirin (Aspirin 81 Mg Ectab) 81 mg PO DAILY [facility] Stop: 10/10/24 08:59 Last Admin: 09/15/24 08:07 Dose: 81 mg Calcium Carbonate (Calcium Carbonate 500 Mg Chewable Tab) 500 mg PO Q8H PRN PRN Reason: Indigestion Stop: 10/14/24 08:05 Last Admin: 09/14/24 21:42 Dose: 500 mg Dextrose (Dextrose 50% 50 Ml Syringe) 25 - 50 ml IV UD PRN; Protocol PRN Reason: Hypoglycemia Protocol Stop: 10/10/24 06:33 Last Admin: 09/11/24 08:33 Dose: 50 ml Dorzolamide/Timolol (Dorzolamide/Timolol 22.3/6.8mg/Ml 10 Ml Btl) 1 drops OP BID SAL Stop: 10/10/24 08:59 Last Admin: 09/15/24 08:07 Dose: 1 drops Ezetimibe (Ezetimibe 10 Mg Tab) 10 mg PO DAILY SAL Stop: 10/10/24 08:59 Last Admin: 09/15/24 08:07 Dose: 10 mg Glucagon (Glucagon For Inj 1 Mg Vial) 1 mg SQ UD PRN; Protocol PRN Reason: Hypoglycemia Protocol Stop: 10/10/24 06:33 Glucose (Glucose 40% Gel 15 Gm Tube) 15 - 30 gm PO UD PRN; Protocol PRN Reason: Hypoglycemia Protocol Stop: 10/10/24 06:33 Glucose (Glucose 10 Tab/Tube) 4 - 8 tab PO UD PRN; Protocol PRN Reason: Hypoglycemia Protocol Stop: 10/10/24 06:33 Heparin Sodium (Porcine) (Heparin Sod 5,000 Unit/0.5 Ml Vial) 5,000 units SQ Q8 SAL Stop: 10/10/24 05:59 Last Admin: 09/15/24 14:48 Dose: 5,000 units Latanoprost (Latanoprost 0.005% Op Soln 2.5 Ml Btl) 1 drops OP HS SAL Stop: 10/10/24 20:59 Last Admin: 09/14/24 20:14 Dose: 1 drops Lorazepam (Lorazepam 0.5 Mg Tab) 1.5 mg PO HS SAL Stop: 10/15/24 20:59 Lorazepam (Lorazepam 0.5 Mg Tab) 0.5 mg PO QAM SAL Stop: 10/16/24 08:59 Lorazepam (Lorazepam 0.5 Mg Tab) 0.5 mg PO 1400 SAL Stop: 10/15/24 13:59 Last Admin: 09/15/24 14:48 Dose: 0.5 mg Lorazepam (Lorazepam 0.5 Mg Tab) 0.5 mg PO BID PRN PRN Reason: Anxiety Stop: 10/15/24 12:39 Miconazole Nitrate (Miconazole Nitrate Powder 85 Gm) 1 appln EXT PRN PRN PRN Reason: Affected Skin Folds Stop: 10/11/24 07:03 Last Admin: 09/11/24 13:43 Dose: 1 appln Miscellaneous (Carbohydrates For Hypoglycemia ) 15 - 30 gm PO UD PRN PRN Reason: Hypoglycemia Protocol Stop: 10/10/24 06:33 Mupirocin (Mupirocin 2% Oint 22 Gm Tube) 1 appln EXT BID SAL Stop: 09/17/24 08:59 Last Admin: 09/15/24 09:56 Dose: Not Given Trazodone HCl (Trazodone Hcl 50 Mg Tab) 25 mg PO HS [facility] Stop: 10/15/24 20:59
[2024-09-15] MEDS: PNEUMOCOCCAL VACCINE (PCV20) 20-VAL CONJ-DIP CRM/PF 0.5 ML SYR IM ONE (16:20)
[2024-09-15] MEDS: ARIPiprazole 10 MG TAB PO SCH (21:43)
[2024-09-15] MEDS: traZODone HCL 50 MG TAB PO SCH (21:49)
[2024-09-16 04:02] LABS: Albumin Globulin Ratio 1.1 (0.9-2); Albumin Level 3.4 gm/dl (3.4-5.0); BUN Creatinine Ratio 10.2 (10-20); Bilirubin,Total 0.4 mg/dl (0.2-1.0); Calcium 8.9 mg/dl (8.6-10.3); Creatinine Clr Calc Pharmacy 51.6 ml/min; Globulin 3.2 gm/dl (2.5-4.0); Potassium 3.4 mmol/L (3.5-5.1); Total Protein 6.6 gm/dl (6.0-8.3)
--- NOTE | 2024-09-16 06:58 | Hospitalist Progress Note ---
Date of Service September 16, 2024 Assessment & Plan (1) Encephalopathy: Plan: This is a 69 yr old F who has a significant PMH of HTN, HLD, T2DM, bipolar disorder, schizoaffective disorder, chronic tremors, glaucoma, past tobacco use who presented to ED on 09/10 2/2 disorientation. Pt presented from the [facility]. Shes resides in [place], [place]. Encephalopathy IMPROVED Possible Delirious Juan F and Catatonia in setting of manic episode/Bipolar Likely secondary to neuropsychotropic medication adverse effect/interaction, hx bipolar disorder, schizoaffective disorder Psych adjusting medications; discussed and made following adjustments/continuation --->On 09/16; tolerating well. Today changes: * 1. Abilify 15 mg by mouth nightly * 2. Lorazepam 1 mg by mouth nightly * 3. Amantatine 50 mg by mouth every morning starting on 09/23 (one week after discharge) follow the following 1. Discontinue taking your MORNING Amantadine 2. Continue taking Amantadine 100 mg by mouth NIGHTLY 3. Continue taking Lorazepam 0.5 mg by mouth ONCE DAILY NEEDED 4. Continue taking Lorazepam 1.0 mg by mouth nightly 5. Continue taking Abilify 15 mg nightly 6. Continue taking trazodone 25 mg by mouth nightly (ALL IN DISCHARGE INSTRUCTIONS) EEG results remain pending CMP ordered for 09/16; No transaminitis Advance diet as tolerated PT/OT cleared for DC; Per Psych anticipate inpatient through 09/17 Hypokalemia: serum potassium 3.4; given KCL 40 MeQ PO; trend labs in AM T2DM: a1c 7.0, will d/c insulin ss as pt hypoglycemic due to poor intake hypoglycemia has improved; no additional IVF Random a.m. cortisol was normal Trend labs in AM BIGG: RESOLVED on admission Cr 1.54, now down to 0.93 Pt was having hypoglycemic episodes and fluids was changed to D10; discontinued Trend labs in AM HLD: chronic, stable continue zetia Endometrial hypodensity: --CT abd/pelvis: Hypodense collection is noted within the endometrial cavity with suspicious enhancing soft tissue. Clinical correlation/ultrasound pelvis is suggested for better evaluation. will need outpt pelvic/TV US for further f/u Disposition: DVT ppx: SQ heparin Code Status: FULL CODE PCP: Dr. Ribera from [facility] Dispo: admitted to medical, not yet medically stable for discharge given current psychiatric state; patient family refuses to return to the [facility] upon medical stability. Likely could benefit from inpatient [facility]. Likely patient will be medically optimized here and discharged home Wed 09/17 Patient requesting updates from providers. Mr. Nguyễn Ricks, contact #[phone] I spent a total of 56 minutes coordinating, documenting and providing care for this patient excluding time spent in the performance of separately billed services or time spent by another provider/QHP. Admission and Anticipated Discharge Date Admission Date: September 11, 2024 Supervising Physician Co-Signing Physician Notes 09/14/2024 The patient was seen and examined in medical floor She has been feeling much better and Trying to converse normally Has been moving limbs but has extreme weakness and tiredness 09/15/2024 The patient was seen and examined in medical floor She has been much better today and has been having good conversation Denies any significant symptoms and awaiting PT OT evaluation 09/16/2024 The patient was seen and examined in medical floor She is much improved and is out of bed on a chair Remains asymptomatic On examination Sitting on a chairwithout any apparent distress Remains hemodynamically stable Chest was clear to auscultate bilaterally with decreased breath sounds both sides HeartS1-S2, regular Abdomenbenign Extremitiestrace edema bilaterally CNSminimal communication with difficulty in communication. Remains very weak and lethargic Her labs and medications reviewed Metabolic encephalopathy with delirium with history of juan f and catatonia in the setting of manic episode/bipolar disorder Appreciate psychiatric evaluation and recommendation Her medications have been adjusted as per the psychiatrist and seems to be medically stable Agree with assessment and plan as outlined above by Mayra ROWLEY and take the full responsibility of care in the hospital Total time taken in documenting all of this was [address] Jack Eddy Subjective Patient sitting upright in her bedside chair; for the first time since I been following with her in no apparent distress. Her mental status continues to improve daily and appears to be back at baseline having full conversation appropriately. In previous days she was slower to respond and answer however. This seems to have been resolved. She denies chest pain, shortness of breath and dizziness. Discussed with psych; all medications changed and adjusted to p.o. yesterday 09/15. Awaiting PT OT to visit with patient; has 3 JESUS at home. Pending PT OT anticipate possible discharge tomorrow 09/17 to home. Called to s/w Nguyễn, to provide medical update who continues to be pleased with her improvement. See below for further details regarding POC. Review of Systems Review of Systems: Neuro: (-) Falls, trauma, slurred speech HEENT: (-) MUÑIZ, dizziness, dysphagia, visual or auditory changes CV: (-) CP, palpitations, swelling Resp: (-) SOB GI: (-) appetite changes, (-) abdominal pain, N/V/D, bowel changes : (-) urinary changes Skin: (-) rashes Psych: (-) anxiety, depression Physical Exam Physical Exam: Neuro: AAOx4, PERRLA, no aphagia, memory changes, CNII-XII grossly intact HEENT: head normocephalic, moist mucus membranes CV: S1/S2, (-) M/G/R, (-) edema, cap refill < 3 seconds Resp: Lungs CTA in all javed. On RA GI: Abdomen S/NT/ND, Ax4 bowel sounds, (-) CVA tenderness (+) tenderness RLQ Musculoskeletal: 5/5 B/L UE strength, 5/5 B/L LE strength. No gait disturbance; tolerated transfer to bedside chair this AM. awaiting PT/OT Skin: (-) rashes , (-) erythema. Psych: Flat affect Results & Data Results & Data Vital Signs (Past 12 Hours) Vital Signs Pulse Resp BP Pulse Ox O2 Del Method 09/15/24 20:21 78 14 128/68 96 Room Air Laboratory Results [facility] 09/16/24 03:21 Sodium 136 Potassium 3.4 L Chloride 106 Carbon Dioxide 25 BUN 10 Creatinine 0.98 Glucose 113 H Calcium 8.9 Liver Function 09/16/24 Range/Units 03:21 Total Bilirubin 0.4 (0.2-1.0) mg/dl AST 22 (13-39) U/L ALT 21 (7-52) U/L Alkaline Phosphatase 88 (34-104) U/L Albumin 3.4 (3.4-5.0) gm/dl
[2024-09-16] MEDS: LORazepam 0.5 MG TAB PO SCH (08:59)
[2024-09-16] MEDS: POTASSIUM CHLORIDE CRTAB 20 MEQ TABCR PO STA (09:00)
[2024-09-16] MEDS ORDERED: LORazepam 0.5 MG TAB PO PRN (13:44)
--- NOTE | 2024-09-16 14:21 | Psychiatric Progress Note ---
Date of Service September 16, 2024 Impression / Recommendations Impression 69 y/o F h/o hypertension, hyperlipidemia, DM 2 on Ozempic, schizoaffective disorder, bipolar type, tremors, glaucoma, past tobacco abuse who presents from outside psychiatric facility ([facility]) with recurrent falls. Psychiatry consulted for evaluation. Concern for a delirious renu and catatonia (rigidity, staring spells, posturing, possible stereotypy) secondary to a manic episode. History of a bipolar condition with past manic episode and stabilization on antipsychotic with stability for years. Concern for recent paranoia, psychosis, decreased need for sleep, psychomotor agitation, mood lability, confusion in the context of medication non-adherence. Given long history of antipsychotic use there is concern for autometabolism leading to medication failure in addition to change in tolerance and may have been a factor in renu recurrence. Considered neuroleptic malignant syndrome however unlikely. Possible withdrawal from amantadine. Per collateral, lorazepam was given initially with rapid improvement in mental status and was abruptly d/c once catatonia resolved. Her ziprasidone was restarted with improvement in mood and function and then later decompensated with worsening confusion and recurrent falls. A: Patient continues to improve. Ambulating now and out of her bed. Appears less sedated from medications. Plan to optimize Abilify and decrease lorazepam and amantadine doses. Overall, I spent a total of 60 minutes with this case including review of chart records, nursing report, review of lab work, direct evaluation of the patient at bedside, counseling the patient, discussion of the patient with the hospitalist provider, discussion with the psychiatric liaison during clinical rounds, gathering collateral from family and documentation in the electronic health record. (1) Renu: (2) Unspecified psychosis not due to a substance or known physiological condition: (3) Delirium: (4) Falls: (5) Catatonia: (6) Schizoaffective disorder, bipolar type: (7) Medication withdrawal: Plan 09/16/2024: Increase Abilify to 15 mg HS Decrease nightly lorazepam to 1 mg at bedtime Decrease amantadine to 50 mg in the morning and 100 mg at bedtime Medication discharge plan: Lorazepam 1 mg at bedtime with 0.5 mg daily as needed for anxiety. Continue amantadine 50 mg in the morning for 1 week and then discontinue; continue nightly amantadine 100 mg. Continue trazodone 25 mg at bedtime. Continue Abilify 50 mg daily. 09/15/2024: Decrease Lorazepam to 0.5mg QAM, 0.5mg @1400, 1.5mg HS Increase Aripiprazole to 10mg HS Start Trazodone 25mg HS Start Lorazepam 0.5mg BID PRN for anxiety 09/14/24 D/c Depakote Transition to oral lorazepam Start Aripiprazole 5mg HS 09/13/24 Continue Lorazepam, Amantadine CK stable now, no need for daily blood work Initiate Depakote 250mg in the evening (PO preferred, if pt unable can do IV infusion over 8-12 hours) 09/12/24 Continue Lorazepam, Amantadine 09/11/24 Lorazepam 1mg QAM, Q2pm IV/IM Lorazepam 2mg QHS IV/IM Continue Amantadine 100mg BID Repeat CK 09/10/24 Lorazepam 1mg TID IV/IM Restart Amantadine at 100mg BID Hold antipsychotics if possible Do not restart home bupropion Repeat CK given psychomotor agitation Encourage hydration, follow renal function Psychiatry service to follow daily Interval History Identifying Information 69 y/o F h/o hypertension, hyperlipidemia, DM 2 on Ozempic, schizoaffective disorder, bipolar type, tremors, glaucoma, past tobacco abuse who presents from outside psychiatric facility ([facility]) with recurrent falls. Psychiatry consulted for evaluation. Chief Complaint AMS, Catatonia Subjective Subjective Patient slept well overnight with 1 disruption likely to use bathroom. She reports having more energy and feels much better. She denies auditory visualizations or tremor. She reports a plan to spend time with her family in the future. She denies SI. Tolerating medication changes well. Physical Exam Mental Examination Appearance: Disheveled Eye Contact: Maintains Eye Contact Motor Behavior: Unremarkable Speech: Soft Mood: Anxious Affect: Anxious and Constricted Thought Process: Linear (waxing and waning at times) Thought Content: Intact, Linear and Racing Hallucinations: None Insight: Fair Judgement: Fair Vital Signs (Past 24 Hours) Last Vital Signs Temp 36.5 C 09/16/24 07:19 Pulse 76 09/16/24 07:19 Resp 16 09/16/24 07:19 BP 117/66 09/16/24 07:19 Pulse Ox 96 09/16/24 07:19 O2 Del Method Room Air 09/16/24 07:19 O2 Flow Rate 8 09/10/24 00:41 Results & Data ([facility] [place]) Laboratory Results Laboratory Results - last 24 hr 09/15/24 09/15/24 09/16/24 16:30 20:23 03:21 Sodium 136 Potassium 3.4 L Chloride 106 Carbon Dioxide 25 Anion Gap 5 BUN 10 Creatinine 0.98 Est Cr Clr Drug Dosing 51.6 eGFR 62.87 BUN/Creatinine Ratio 10.2 Glucose 113 H POC Glucose 117 H 115 H Calcium 8.9 Total Bilirubin 0.4 AST 22 ALT 21 Alkaline Phosphatase 88 Total Protein 6.6 Albumin 3.4 Globulin 3.2 Albumin/Globulin Ratio 1.1 09/16/24 09/16/24 07:47 11:47 Sodium Potassium Chloride Carbon Dioxide Anion Gap BUN Creatinine Est Cr Clr Drug Dosing eGFR BUN/Creatinine Ratio Glucose POC Glucose 106 H 136 H Calcium Total Bilirubin AST ALT Alkaline Phosphatase Total Protein Albumin Globulin Albumin/Globulin Ratio Current Inpatient Medications Current Inpatient Medications: Current Inpatient Medications Acetaminophen (Acetaminophen 325 Mg Tab) 650 mg PO QID PRN PRN Reason: pain/fever Stop: 10/10/24 04:39 Last Admin: 09/16/24 05:21 Dose: 650 mg Amantadine HCl (Amantadine Hcl 100 Mg Capsule) 100 mg PO HS [facility] Stop: 10/16/24 20:59 Amantadine HCl (Amantadine Hcl Syrup 50 Mg/5 Ml Udp) 50 mg PO QAM [facility] Stop: 10/17/24 08:59 Aripiprazole (Aripiprazole 15 Mg Tab) 15 mg PO QPM [facility] Stop: 10/16/24 20:59 Aspirin (Aspirin 81 Mg Ectab) 81 mg PO DAILY SAL Stop: 10/10/24 08:59 Last Admin: 09/16/24 08:59 Dose: 81 mg Calcium Carbonate (Calcium Carbonate 500 Mg Chewable Tab) 500 mg PO Q8H PRN PRN Reason: Indigestion Stop: 10/14/24 08:05 Last Admin: 09/14/24 21:42 Dose: 500 mg Dextrose (Dextrose 50% 50 Ml Syringe) 25 - 50 ml IV UD PRN; Protocol PRN Reason: Hypoglycemia Protocol Stop: 10/10/24 06:33 Last Admin: 09/11/24 08:33 Dose: 50 ml Dorzolamide/Timolol (Dorzolamide/Timolol 22.3/6.8mg/Ml 10 Ml Btl) 1 drops OP BID SAL Stop: 10/10/24 08:59 Last Admin: 09/16/24 09:02 Dose: 1 drops Ezetimibe (Ezetimibe 10 Mg Tab) 10 mg PO DAILY SAL Stop: 10/10/24 08:59 Last Admin: 09/16/24 09:00 Dose: 10 mg Glucagon (Glucagon For Inj 1 Mg Vial) 1 mg SQ UD PRN; Protocol PRN Reason: Hypoglycemia Protocol Stop: 10/10/24 06:33 Glucose (Glucose 40% Gel 15 Gm Tube) 15 - 30 gm PO UD PRN; Protocol PRN Reason: Hypoglycemia Protocol Stop: 10/10/24 06:33 Glucose (Glucose 10 Tab/Tube) 4 - 8 tab PO UD PRN; Protocol PRN Reason: Hypoglycemia Protocol Stop: 10/10/24 06:33 Heparin Sodium (Porcine) (Heparin Sod 5,000 Unit/0.5 Ml Vial) 5,000 units SQ Q8 SAL Stop: 10/10/24 05:59 Last Admin: 09/16/24 13:51 Dose: 5,000 units Latanoprost (Latanoprost 0.005% Op Soln 2.5 Ml Btl) 1 drops OP HS SAL Stop: 10/10/24 20:59 Last Admin: 09/15/24 21:43 Dose: 1 drops Lorazepam (Lorazepam 1 Mg Tab) 1 mg PO HS SAL Stop: 10/16/24 20:59 Lorazepam (Lorazepam 0.5 Mg Tab) 0.5 mg PO DAILY PRN PRN Reason: Anxiety Stop: 10/15/24 12:39 Miconazole Nitrate (Miconazole Nitrate Powder 85 Gm) 1 appln EXT PRN PRN PRN Reason: Affected Skin Folds Stop: 10/11/24 07:03 Last Admin: 09/11/24 13:43 Dose: 1 appln Miscellaneous (Carbohydrates For Hypoglycemia ) 15 - 30 gm PO UD PRN PRN Reason: Hypoglycemia Protocol Stop: 10/10/24 06:33 Mupirocin (Mupirocin 2% Oint 22 Gm Tube) 1 appln EXT BID SAL Stop: 09/17/24 08:59 Last Admin: 09/16/24 09:02 Dose: 1 appln Trazodone HCl (Trazodone Hcl 50 Mg Tab) 25 mg PO HS [facility] Stop: 10/15/24 20:59 Last Admin: 09/15/24 21:49 Dose: 25 mg
[2024-09-16] MEDS: LORazepam 1 MG TAB PO SCH (20:29)
[2024-09-16] MEDS: AMANTADINE HCL 100 MG CAPSULE PO SCH (20:30)
[2024-09-16] MEDS: ARIPiprazole 15 MG TAB PO SCH (20:30)
--- NOTE | 2024-09-17 06:40 | Discharge Summary ---
Discharge Summary Date of Service September 17, 2024 Principal Dx & Hospital Course #1 = Principal Diagnosis (1) Encephalopathy: Yara Ricks is a 69y[facility] F [facility] with PMHx significant for HTN, HLD, DMII on Ozempic, bipolar disorder, schizoaffective disorder, chronic tremors, glaucoma and past tobacco use who was admitted under our service for further evaluation of recurrent falls and decreased responsiveness. Seen and evaluated by inpatient psychiatry services. Likely delirious juan f and catatonia secondary to a manic episode in the setting of underlying bipolar disorder. Possible withdrawal from amantadine. Concern for possible autometabolism leading to medication failure in addition to change in tolerance given long history of antipsychotic use which may have been a contributing factor in her juan f recurrence. Neuroleptic malignant syndrome considered unlikely. Patients mentation and overall level of functioning continue to steadily improve with medication changes initiated by inpatient psychiatry. Approaching back to baseline level of functioning. Appropriately engaged in full conversation prior to discharge. Psychiatric medication discharge plan: 1.) Continue Abilify 15mg HS. 2.) Continue trazodone 25mg HS. 3.) Continue Ativan 1mg HS with 0.5mg daily PRN for anxiety. 4.) Continue amantadine 50mg QAM x 1 week and then discontinue ONLY this dose. Continue amantadine 100mg HS. 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 EEG results remain pending at time of discharge. Family refuses to have the patient return [facility]. Patient medically optimized and stable for discharge home. Above medication changes discussed in detail with the patient and her , Nguyễn, at bedside prior to discharge and they both expressed understanding. (2) Diabetes mellitus, type 2: Hgb A1c 7% this admission. Continue home Ozempic regimen on discharge. (3) BIGG (acute kidney injury): Noted on admission. Now resolved s/p IVF resuscitation. (4) Abnormal CT scan: Endometrial hypodensity noted on CTAP. Hypodense collection within the endometrial cavity with suspicious enhancing soft tissue. Pelvic US with thickened heterogeneous endometrium measuring 15mm. Possibility of neoplasms cannot be excluded. Will need further outpatient NETWORK APPLICATIONS SPECIALIST evaluation regarding this. Discussed this directly with the patients , Nguyễn, this morning at bedside in order to coordinate follow-up (PCP to help arrange). Microvascular Ischemic Changes seen on CT head already on ASA may need Statin, Further work up, management, and ff up as outpatient Other Chronic Medical Conditions: HLD/HTN - Continue home medications for these specific conditions on discharge. PCP: Sander Ribera MD Disposition: Patient is being discharged home in stable condition with close PCP and psychiatry follow-up appointments. Patient seen in collaboration with Dr. Hall. Please see addendum. I spent a total of 65 minutes coordinating, documenting, and providing care for this patient excluding time spent in the performance of separately billed services or time spent by another provider/QHP. This included personally reviewing all current laboratories and imaging studies, medical reconciliation, outpatient chart review and discussion with specialists. This chart was completed in part utilizing Speech Voice Recognition Software. Grammatical errors, random word insertions, pronoun errors, and incomplete sentences are an occasional consequence of this system due to software limitations, ambient noise, and hardware issues. Any formal questions or concerns about the content, text, or information contained within the body of this dictation should be directly addressed to the provider for clarification. Notes For Next Care Provider Endometrial hypodensity noted on CTAP with suspicious enhancing soft tissue. Pelvic US with thickened heterogeneous endometrium measuring 15mm. Possibility of neoplasms cannot be excluded. Will need to arrange for close NETWORK APPLICATIONS SPECIALIST follow-up for further investigation regarding this. Medication Changes From Visit 1.) Continue Abilify 15mg HS. 2.) Continue trazodone 25mg HS. 3.) Continue Ativan 1mg HS with 0.5mg daily PRN for anxiety. 4.) Continue amantadine 50mg QAM x 1 week and then discontinue ONLY this dose. Continue amantadine 100mg HS. 5.) Both Wellbutrin and Geodon have been discontinued. Admission HPI Per Admitting Provider History obtained from patient, family, and records. Patient is not a reliable historian secondary to disorientation. Medical history significant for hypertension, hyperlipidemia, DM 2 on Ozempic, bipolar disorder, schizoaffective disorder, chronic tremors, glaucoma, past tobacco abuse. Patient is a resident of [place], [place] who was admitted at the local [facility] last September 01, 2024. 2 weeks ago, patient noted to have decreased responsiveness, hallucinations and catatonia, and confusion at home following PCP visit and increase in Geodon home dose. Patient stopped taking other mood pills as per . Patient admitted for 3 days at [facility] in [place], [place] for catatonia. Ativan 3 times daily initiated for catatonia. Patient Elise resumed inpatient. Patient subsequently discharged to [facility] in [facility] for inpatient psych admission last August 29. Patient doing well and supposed to go home tomorrow as per . Patient with recurrent falls at the [facility] since yesterday. Decreased responsiveness. Not sure if patient passed out. No witnessed seizures. Patient brought to ER for evaluation. Patient noted to be agitated at the ER requiring IV Ativan administration. Lowest SBP at the ER noted to be 80s. Patient denies headache, chest pain, SOB, abdominal pain. Does not know why she is in the hospital. 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 Sitting up in chair. A&Ox4. Appropriately engaged in conversation. Flat affect. present at bedside. HEENT: Normocephalic, atraumatic. Conjunctivae normal. External ear and nose normal, oropharynx normal. Respiratory: Normal respiratory effort, lungs clear to auscultation bilaterally. + dry cough. No accessory muscle use. Cardiovascular: Regular rate and rhythm. Normal peripheral pulses. No BLE edema. Abdomen/GI: Normal bowel sounds, soft, nondistended, nontender to palpation in all quadrants. Extremities/Musculoskeletal: No gait disturbance, extremities motor strength intact, moves all extremities. Updated Medication List Medication Instructions Recorded Confirmed Type amantadine HCl 100 mg capsule 100 mg PO HS 09/10/24 09/10/24 History aspirin 81 mg chewable tablet 81 mg PO DAILY 09/10/24 09/10/24 History dorzolamide 22.3 mg-timolol 6.8 1 drp ophthalmic (eye) BID 09/10/24 09/10/24 History mg/mL eye drops ezetimibe 10 mg tablet 10 mg PO DAILY 09/10/24 09/10/24 History latanoprost 0.005 % eye drops 1 drp ophthalmic (eye) HS 09/10/24 09/10/24 History losartan 25 mg tablet 50 mg PO DAILY 09/10/24 09/10/24 History semaglutide 1 mg/dose (4 mg/3 mL) 1 mg subcut WK 09/10/24 09/10/24 History subcutaneous pen injector (Ozempic) aripiprazole 15 mg tablet (Abilify) 15 mg PO QPM schizoaffective 09/16/24 Rx disorder #20 tabs lorazepam 0.5 mg tablet 0.5 mg PO DAILY PRN anxiety #20 09/16/24 Rx tabs lorazepam 0.5 mg tablet 0.5 mg PO DAILY PRN anxiety #7 tabs 09/16/24 Rx lorazepam 1 mg tablet 1 mg PO HS #10 tabs 09/16/24 Rx lorazepam 1 mg tablet 1 mg PO HS anxiety #30 tabs 09/16/24 Rx trazodone 50 mg tablet 25 mg (1/2 x 50 mg) PO HS 09/16/24 Rx schizoaffective disorder #30 tabs amantadine HCl 100 mg tablet 50 mg (1/2 x 100 mg) PO QAM 6 days 09/17/24 Rx #3 tabs Hospital Stay Data Consultations 09/10/24 03:18 ED Decision to Admit Stat 09/10/24 05:21 Consult Psychiatry Routine Diagnostic Imagining Performed SUMMARY OF TEST RESULTS 09/09/[address] Impression: 1. No evidence of acute intracranial abnormality is demonstrated. 2. Chronic microvascular ischemic changes. 3. Cerebral atrophy. 4. Osteosclerosis involving skull bones: advise metabolic workup. 09/09/[address] Impression: 1. No obvious post-traumatic solid organ injury detected. 2. No free fluid is noted in the abdominopelvic cavity. 3. Hypodense collection is noted within the endometrial cavity with suspicious enhancing soft tissue. 4. Mild bilateral perinephric fat stranding, likely age related. 09/09/2024 Chest CTA Impression: 1. No acute trauma related injury detected. 09/09/[address] Impression: 1. No acute fracture or subluxation in the cervical spine. 09/09/[address] Impression: 1. Lumbar spondylosis. 2. No fracture or dislocation. 09/09/[address] Impression: 1. No acute fracture or subluxation in the thoracic spine. 2. Early degenerative changes in thoracic spine. 09/10/2024 Pelvis Ultrasound: 1. Thickened heterogenous endometrium measuring 15 mm. The possibility of neoplasms cannot be excluded; further clinical, lab, and MRI evaluation is advised. Unchanged. 2. No pelvic free fluid. 3. Nonvisualization of the bilateral ovaries. Pending Results Patient Have Any Pending Studies at Discharge: No Discharge Instructions Given to Patient (Per Discharging Provider) Doroteo Alonzo presented to [facility] from [place]. A few weeks prior to your admission at [place] [facility], you were noted to have decreased responsiveness along with hallucinations (seeing and hearing things that do not exist), catatonia (inability to move your body correctly) and confusion. At [facility], you had recurrent falls with continued decreased responsiveness and subsequently you were brought to the [facility] ED for evaluation. There was concern for delirious juan f and catatonia with staring spells and posturing (abnormal muscle contractions). No seizure activity was identified. As we know, you have a history of bipolar disorder with past manic episodes and you have been stable on antipsychotic medications for years prior to this. During recent hospitalizations, you responded well with medication changes and a lorazepam challenge was administered to you with improvement in your mental status. You were followed closely by the psychiatry service during your admission and had adjustments made to your psychiatric medications as outlined below. Each day your mental status showed continued improvement. You have been deemed medically stable for discharge from the hospital. You will have close follow-up with your primary care provider and psychiatry provider as outlined below. MEDICATION CHANGES: Psychiatry has been closely monitoring your medications as your catatonia improved You will go home on the following psychiatric medication changes which have been called into your pharmacy. 1. Abilify 15mg by mouth nightly. 2. Lorazepam 1mg by mouth nightly. 3. Amantadine 50mg by mouth every morning. Starting on 09/23/2024 (1 week after discharge), please follow the additional medication changes as outlined below: 1. Discontinue taking your MORNING amantadine. 2. Continue taking Amantadine 100mg by mouth NIGHTLY. 3. Continue taking Lorazepam 0.5mg by mouth ONCE DAILY NEEDED. 4. Continue taking Lorazepam 1.0mg by mouth nightly. 5. Continue taking Abilify 15mg by mouth nightly. 6. Continue taking trazodone 25mg by mouth nightly. RECOMMENDATIONS FOR FOLLOW-UP: 1. A follow-up appointment has been arranged with your PCP, Dr. Ribera, on 09/18/2024 @ 2:30 PM. 2. A psychiatry follow-up appointment will be held at [facility] on 09/18/2024 @ 10 AM. Address for the facility is [address] [place] [address] and their phone number is . Seek medical attention if you have: * temperature above 101F * chest pain or trouble breathing * abdominal pain, nausea, vomiting * diarrhea, dark stools or bloody stools * any unanswered questions or concerns Call 911 if symptoms are severe. Please take good care of yourself! It has been a pleasure taking care of you. If you have any questions regarding your recent hospitalization please contact [facility] and request a [facility] Hospitalist @ [phone]. Total Time Total Time Spent Total Time Spent (In Minutes): 65 Supervising Physician Co-Signing Physician Notes Attending Addendum: thorough review of patient's chart performed also discussed with previous hospitalist Dr. Eddy Case reviewed with the advanced practitioner. I have reviewed the advanced practitioner's documentation on the date of service referenced in note, and I agree with, and take responsibility for the plan of care. please refer to her notes for full details proceeded to patient's room at around 1120am, patient has already left all labs, imaging noted and reviewed ASSESSMENT AND PLAN diagnoses and plan of care as per advanced practitioner's notes I spent a total of 35 minutes coordinating, documenting, and providing care for this patient, excluding time spent in the performance of separately billed services or time spent by another provider/QHP. Edwin Hall MD
[2024-09-17 08:17] LABS: BUN Creatinine Ratio 10.5 (10-20); Calcium 9.2 mg/dl (8.6-10.3); Creatinine Clr Calc Pharmacy 53.3 ml/min; Potassium 3.8 mmol/L (3.5-5.1)
[2024-09-17] MEDS: AMANTADINE HCL SYRUP 50 MG/5 ML UDP PO SCH (08:46)
== END 2024-09-17 11:30 | disposition home or self-care (01) | DRG 885 ==
LOC: EDINP 23:13 → ED 23:13 → 2N 09-10 06:34 → 3E 09-11 21:59 → SUATTDRO 09-11 22:00
DX: Z79.899 Other long term (current) drug therapy; T43.8X5A Adverse effect of other psychotropic drugs, initial encounter; T42.8X6A Underdosing of antiparkinsonism drugs and other central muscle-tone depressants, initial encounter; F20.2 Catatonic schizophrenia; F31.9 Bipolar disorder, unspecified; R25.1 Tremor, unspecified; E87.6 Hypokalemia; Z88.0 Allergy status to penicillin; E78.5 Hyperlipidemia, unspecified; I10 Essential (primary) hypertension; N17.9 Acute kidney failure, unspecified; R93.89 Abnormal findings on diagnostic imaging of other specified body structures; G92.8 Other toxic encephalopathy; Z79.85 Long-term (current) use of injectable non-insulin antidiabetic drugs; E11.9 Type 2 diabetes mellitus without complications; Z79.82 Long term (current) use of aspirin; Z91.148 Patient's other noncompliance with medication regimen for other reason; I95.9 Hypotension, unspecified